=== PATIENT | male | born 1940 | race Caucasian/White ===

== ENCOUNTER 2016-11-03 14:25 | Inpatient (IN) | payer MEDICARE ==
[~2016-11-03] VITALS: Ht 180.3 cm; Wt 90.0 kg
[~2016-11-03 14:25] MED LIST: CEFDINIR300 MG PO; LIPITOR80 MG PO; MYRBETRIQ25 MG PO; ROPINIROLE HYDRO1 MG PO; TROSPIUM CHLORI20 MG PO; XARELTO20 MG PO
[2016-11-03 14:31] VITALS: BP 118/80
--- OUTSIDE RECORDS SUMMARY | 2016-11-03 14:42 | External Medical Summary Rpt ---
Author Author MAT Address Unknown Phone Purpose Continuity of Care Document - through 2016
--- OUTSIDE RECORDS SUMMARY | 2016-11-03 14:42 | External Medical Summary Rpt ---
Author Author [employer] Organization [employer] Address Unknown Phone Unavailable Purpose Continuity of Care Document - through 2016
--- OUTSIDE RECORDS SUMMARY | 2016-11-03 14:42 | External Medical Summary Rpt ---
Author Author MAT Address Unknown Phone [email or web address] Purpose Continuity of Care Document - through 2016
--- OUTSIDE RECORDS SUMMARY | 2016-11-03 14:43 | External Medical Summary Rpt ---
Author Author , MAT RIVERO Address Unknown Phone [email or web address] Immunization Name Date Rout CVX Reac Dose Comm Prov Is Faci e tion ent ider Refu lity Give sed n Tdap 07-1 Intr 115 0.5 Hist D049 No D049 , 8-20 amus mL oric 01 01 Adso 17 cula al rbed r Info rmat ion - Sour ce Unsp ecif ied
--- OUTSIDE RECORDS SUMMARY | 2016-11-03 14:43 | External Medical Summary Rpt ---
Author Author MAT Adrian, [employer] Organization [employer] Address Unknown Phone Unavailable
--- OUTSIDE RECORDS SUMMARY | 2016-11-03 14:43 | External Medical Summary Rpt ---
Author Author , MAT RIVERO Address Unknown Phone [email or web address] Immunization Name Date Rout CVX Reac Dose Comm Prov Is Faci e tion ent ider Refu lity Give sed n Tdap 07-1 Intr 115 0.5 Hist D049 No D049 , 8-20 amus mL oric 01 01 Adso 17 cula al rbed r Info rmat ion - Sour ce Unsp ecif ied
[2016-11-03] MEDS ORDERED: LASIX20 MG PO (14:45)
[2016-11-03 15:19] LABS: HEMOGLOBIN 16.6 g/dL (14.1-18.0)
[2016-11-03 15:20] LABS: LYMPH # 0.6 K/mm3 (0.7-4.5); LYMPH % 14.1 % (10-50)
--- NOTE | 2016-11-03 15:59 | Emergency Room Report ---
History of Present Illness Time Seen by 1440 Presenting Problem in Triage Pt arrived:Wheelchair Presenting Problem:PT FAMILY STATES FEVER, CHILLS, N/V, DIARRHEA Onset of symptoms date/time:10/29/16 or onset unknown for: Treatment Prior to Arrival: TOOK [employer] Provided by:SELF Sepsis Risk Assessment: Temp: 97.9 B/P: 122/84 MAP: 92 Pulse: 80 Resp: 18 Recent fever? Y Clinical Suspician of Infection? N Mental Status: 1 - Regular (Normal Baseline) Sepsis Risk:Low Sepsis Risk Have you (or family members/close friends) recently traveled outside the [place]? N If Yes, where/when: Have you had exposure to infectious disease within the past month? N TB? Other? Specify: 76 years old white male who presented with fever or chills body aches and vomiting 2 a day and intermittent diarrhea, he is getting weaker and weaker worse since last Friday. He has been around sick people in the hospital lately and his roommate's son has a same symptoms. He CONTACTED DR ARMENTA HIS primary care physician whoadvised him to come to the ED. Source patient, RN notes reviewed, family Exam Limitations no limitations ALLERGIES Coded Allergies: No Known Allergies (07/21/16) Home Medications Reported Medications Atorvastatin Calcium (Atorvastatin) 20 MG PO DAILY Rivaroxaban (Xarelto) 20 MG PO DAILY ROPINIROLE HCL (Ropinirole 1MG) 2 MG PO QHS Furosemide (Lasix) (Unknown Dose) PO DAILY History Medical History General CAD? Yes Angina: Yes [place]: No Hypertension? No Hyperlipidemia? No CHF? No DVT? No PE? No COPD? No Asthma? No Anemia? No GERD? No Gastric ulcers? No GI Bleed? No Hernia? No Thyroid Problems? No Hypothyroidism? No CVA? No Seizures? No Diabetes? No Renal Insuffiency? No End Stage Renal Disease? No UTI? No Stones? No BPH? No GB Disease: No Nephritic Syndrome? No Asplenia? No Hepatitis? No Sickle Cell Disease? No Arthritis? No Migraines? No Cataracts? Yes Glaucoma? No MRSA? No HIV? No TB? No Anxiety? No Depression? No Cancer? Yes Site: PROSTATE More? No Immunization Hx DT/Tetanus 1-4 Years Ago Flu 2015-FSN Pneumonia Received In Past Surgical Hx Previous Surgery?Y LT FOOT CRUSH INJ 1956 PROSTATE SURGERY 2010([place]) IMPLANTED URINARY CONTROL SYSTEM 06/24 CATARACT SX Family History Family Hx Diabetes No CAD Yes Hypertension Yes Hyperlipidemia No Cancer Yes TB No Social History Smoking Hx Smoker: Never Smoker Tobacco: No Alcohol Alcohol: No Review of Systems All Other Systems Reviewed and Negative Constitutional see HPI, weakness Eyes no symptoms reported ENT no symptoms reported. Respiratory no symptoms reported Cardiovascular no symptoms reported Gastrointestinal see HPI, diarrhea, nausea, vomiting Genitourinary no symptoms reported. Musculoskeletal no symptoms reported Skin no symptoms reported Psychiatric/Neurological no symptoms reported Physical Exam Vital Signs Vital Signs Date Time Temp Pulse Resp B/P Pulse O2 O2 Flow FiO2 Ox Delivery Rate 11/03 1517 80 18 122/84 94 11/03 1431 97.9 84 18 118/80 94 - WBC >12,000 or <4,000 or 10% bands? 2 or more SIRS Criteria Met? B/P:122/84 MAP:92 Creatinine >2.0? UA output<0.5ml/kg/hr for 2 hrs? Platelet count >100,000? Lactate >2.0mmol/1? INR >1.2 or PTT > than 60 sec? Evidence of Organ Dysfunction? Provider documented clinical suspician of infection? N Sepsis Criteria Count: 1 Sepsis Risk: Low Sepsis Risk General Appearance normal appearance, WD/WN Eye Exam - bilateral eye normal exam, bilateral eye PERRL, bilateral eye EOMI Ear, Nose, Throat DRY TONGUE Neck normal inspection, non-tender, supple, full range of motion Respiratory Status Yes: trachea midline, chest symmetrical, non tender chest. No: respiratory distress. Lung Sounds bilateral: normal breath sounds, lungs clear. 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 No Results/Orders Laboratory Tests 11/03/16 1505: Amylase 54, Lipase 233 11/03/16 1505: Sodium 128 L, Potassium 4.2, Chloride 95 L, Carbon Dioxide 28, BUN 24 H, Creatinine 1.5 H, Estimated Creat Clear 52, Estimated GFR (MDRD) 45, Glucose 123 H, Calcium 8.6, Total Bilirubin 1.4 H, AST 67 H, ALT 45, Alkaline Phosphatase 71, Total Protein 7.6, Albumin 3.4, Globulin 4.2 H, Albumin/ Globulin Ratio 0.8 L, WBC 4.4 L, RBC 5.50, Hgb 16.6, Hct 49.8, MCV 90.5, RDW 15.9, Plt Count 102 L, Gran % 82.5 H, Gran # 3.6, Lymphocytes % 14.1, Monocytes % 3.4, Lymphocytes # 0.6 L, Monocytes # 0.1, PUBS MCHC 33.3, MCH 30.2 Current Medication Orders Sig/Kayden Start time Last Medication Dose Route Stop Time Status Admin Sodium Chloride 1,000 ML .Q1H1M 11/03 1600 AC 11/03 IV 11/03 1700 1556 Sodium Chloride 10 ML PRN PRN 11/03 1600 AC IV 11/04 1554 Sodium Chloride 1,000 ML .STK-MED ONE 11/03 1557 DC IV Sodium Chloride 10 ML PRN PRN 11/03 1500 AC IV 11/04 1458 Orders Procedure Date/time Status Decision to admit 11/03 1605 Active ABD ACUTE(MUL VIEWS) 11/03 1554 Active LIPASE 11/03 1501 Complete AMYLASE 11/03 1501 Complete IV SALINE LOCK 11/03 1458 Active CBC WITH AUTO DIFF 11/03 1458 Complete CHEM 12 PROFILE 11/03 1458 Complete XRAY/CT/US XRAY/CT/US XRAY chest, abdomen XR interpretation by reviewed by me Comment Chest x-ray was negative. Abdomen postop changes. Multiple fluid levels without dilatation. Questionable early ileus. Departure Departure Time of Disposition 1557 Disposition Still a Patient Clinical Impression Primary Impression: Dehydration Secondary Impressions: Elevated bilirubin, Ileus, Renal insufficiency, Vomiting and diarrhea Condition STABLE Referrals Manuel LO,Migue (Family) Additional Instructions The patient was started on IV fluids obtained labs that showed renal insufficiency after IV fluids he has not produced urine seems to be dehydrated. I contacted Dr. ARMENTA for admission. DR ARMENTA AGREED TOADMIT FOR IVF AND DEHYDRATION. DR. ALVARADO Discharge Counseling Counseled pt/family regarding diagnosis, medications/RX, home care, follow up needs ED Critical Care Critical Care No If Critical Care minutes are documented, the time involved in the performance of seperately reportable procedures was not counted toward critical care time documented. I directly delivered medical care to this critically ill and/or injured patient. Timely evaluation and treatment was necessary to address the significant organ system(s) dysfunction present in this patient. at 2624
--- OUTSIDE RECORDS SUMMARY | 2016-11-03 16:12 | External Medical Summary Rpt ---
Author Author MAT Address Unknown Phone Purpose Continuity of Care Document - 11-03-2016 through 2016
--- OUTSIDE RECORDS SUMMARY | 2016-11-03 16:12 | External Medical Summary Rpt ---
Author Author MAT Address Unknown Phone [email or web address] Purpose Continuity of Care Document - 11-03-2016 through 2016
--- OUTSIDE RECORDS SUMMARY | 2016-11-03 16:13 | External Medical Summary Rpt ---
Demographics Preferred Language Chinese Marital Status Unknown Shinto Affiliation Unknown Race Unknown Ethnic Group Unknown Author Author , MAT RIVERO Address Unknown Phone Immunization Unable to retrieve immunization data due to connection failure with Immunization Registry. Please try again later.
--- OUTSIDE RECORDS SUMMARY | 2016-11-03 16:13 | External Medical Summary Rpt ---
Demographics Preferred Language Telugu Marital Status Unknown Yarsani Affiliation Unknown Race Unknown Ethnic Group Unknown Author Author , MAT RIVERO Address Unknown Phone Immunization Unable to retrieve immunization data due to connection failure with Immunization Registry. Please try again later.
--- OUTSIDE RECORDS SUMMARY | 2016-11-03 16:14 | External Medical Summary Rpt ---
Author Author MAT ec[employer]ee, MAT [employer] Organization [employer] Address Unknown Phone Unavailable Results Comprehensive metabolic 2000 panel in Serum or Plasma Observa Value Referen Units Interpr Notes Date tion ce etation Range Albumin/G 1.1 - 1.8 No Low No Nov 03 lobulin informati informati 2016 3:05 [Mass on in on in PM ratio] in source source Serum or data data Plasma Albumin 3.4 - 5.0 gm/dL Normal No Nov 03 [Mass/vol informati 2016 3:05 ume] in on in PM Serum or source Plasma data Alkaline 46 - 116 U/L Normal No Nov 03 phosphata informati 2016 3:05 se on in PM [Enzymati source c data activity/ volume] in Serum or Plasma Bilirubin 0.2 - 1.0 mg/dL High No Nov 03 .total informati 2016 3:05 [Mass/vol on in PM ume] in source Serum or data Plasma Urea 7 - 18 mg/dL High No Nov 03 nitrogen informati 2016 3:05 [Mass/vol on in PM ume] in source Serum or data Plasma Calcium 8.5 - mg/dL Normal No Nov 03 [Mass/vol 10.1 informati 2016 3:05 ume] in on in PM Serum or source Plasma data Chloride 98 - 107 mmoL/L Low No Nov 03 [Moles/vo informati 2016 3:05 lume] in on in PM Serum or source Plasma data Carbon 21.0 - mmoL/L Normal No Nov 03 dioxide, 32.0 informati 2016 3:05 total on in PM [Moles/vo source lume] in data Serum or Plasma Creatinin 0.70 - mg/dL High No Nov 03 e 1.30 informati 2017 3:05 [Mass/vol on in PM ume] in source Serum or data Plasma Creatinin 50 - 200 ML/MIN Normal No Nov 03 e renal informati 2017 3:05 clearance on in PM source predicted data by Cockcroft -Gault formula Estimated >60 ML/MIN No REFERENCE Nov 03 informati RANGE: 2017 3:05 glomerula on in >60 PM r source ML/MIN/1. filtratio data 73 SQUARE n rate METERSIf (GF this patient is -A merican, then multiply theresult by 1.210. Globulin 1.3 - 3.2 gm/dL High No Nov 03 [Mass/vol informati 2016 3:05 ume] in on in PM Serum source data Glucose 74 - 106 mg/dL High No Nov 03 [Mass/vol informati 2016 3:05 ume] in on in PM Serum or source Plasma data Potassium 3.5 - 5.1 mmoL/L Normal MAY BE Nov 03 ELEVATED 2016 3:05 [Moles/vo DUE TO PM lume] in SLIGHT Serum or HEMOLYSIS Plasma Sodium 136 - 145 mmoL/L Low No Nov 03 [Moles/vo informati 2016 3:05 lume] in on in PM Serum or source Plasma data Aspartate 15 - 37 U/L High MAY BE Nov 03 ELEVATED 2016 3:05 aminotran DUE TO PM sferase SLIGHT [Enzymati HEMOLYSIS c activity/ volume] in Serum or Plasma Alanine 12 - 78 U/L Normal No Nov 03 aminotran informati 2016 3:05 sferase on in PM [Enzymati source c data activity/ volume] in Serum or Plasma Protein 6.4 - 8.2 gm/dL Normal No Nov 03 [Mass/vol informati 2016 3:05 ume] in on in PM Serum or source Plasma data Comprehensive metabolic 2000 panel in Serum or Plasma Observa Value Referen Units Interpr Notes Date tion ce etation Range Albumin/G 1.1 - 1.8 No Low No Nov 03 lobulin informati informati 2016 3:05 [Mass on in on in PM ratio] in source source Serum or data data Plasma Albumin 3.4 - 5.0 gm/dL Normal No Nov 03 [Mass/vol informati 2016 3:05 ume] in on in PM Serum or source Plasma data Alkaline 46 - 116 U/L Normal No Nov 03 phosphata informati 2016 3:05 se on in PM [Enzymati source c data activity/ volume] in Serum or Plasma Bilirubin 0.2 - 1.0 mg/dL High No Nov 03 .total informati 2017 3:05 [Mass/vol on in PM ume] in source Serum or data Plasma Urea 7 - 18 mg/dL High No Nov 03 nitrogen informati 2017 3:05 [Mass/vol on in PM ume] in source Serum or data Plasma Calcium 8.5 - mg/dL Normal No Nov 03 [Mass/vol 10.1 informati 2016 3:05 ume] in on in PM Serum or source Plasma data Chloride 98 - 107 mmoL/L Low No Nov 03 [Moles/vo informati 2016 3:05 lume] in on in PM Serum or source Plasma data Carbon 21.0 - mmoL/L Normal No Nov 03 dioxide, 32.0 informati 2016 3:05 total on in PM [Moles/vo source lume] in data Serum or Plasma Creatinin 0.70 - mg/dL High No Nov 03 e 1.30 informati 2016 3:05 [Mass/vol on in PM ume] in source Serum or data Plasma Creatinin 50 - 200 ML/MIN Normal No Nov 03 e renal informati 2016 3:05 clearance on in PM source predicted data by Cockcroft -Gault formula Estimated >60 ML/MIN No REFERENCE Nov 03 informati RANGE: 2017 3:05 glomerula on in >60 PM r source ML/MIN/1. filtratio data 73 SQUARE n rate METERSIf (GF this patient is -A merican, then multiply theresult by 1.210. Globulin 1.3 - 3.2 gm/dL High No Nov 03 [Mass/vol informati 2016 3:05 ume] in on in PM Serum source data Glucose 74 - 106 mg/dL High No Nov 03 [Mass/vol informati 2016 3:05 ume] in on in PM Serum or source Plasma data Potassium 3.5 - 5.1 mmoL/L Normal MAY BE Nov 03 ELEVATED 2016 3:05 [Moles/vo DUE TO PM lume] in SLIGHT Serum or HEMOLYSIS Plasma Sodium 136 - 145 mmoL/L Low No Nov 03 [Moles/vo informati 2016 3:05 lume] in on in PM Serum or source Plasma data Aspartate 15 - 37 U/L High AUGUST BE Nov 03 ELEVATED 2016 3:05 aminotran DUE TO PM sferase SLIGHT [Enzymati HEMOLYSIS c activity/ volume] in Serum or Plasma Alanine 12 - 78 U/L Normal No Nov 03 aminotran informati 2016 3:05 sferase on in PM [Enzymati source c data activity/ volume] in Serum or Plasma Protein 6.4 - 8.2 gm/dL Normal No Nov 03 [Mass/vol informati 2016 3:05 ume] in on in PM Serum or source Plasma data Amylase [Enzymatic activity/volume] in Serum or Plasma Observa Value Referen Units Interpr Notes Date tion ce etation Range Amylase 25 - 115 U/L Normal No Nov 03 [Enzymati informati 2016 3:05 c on in PM activity/ source volume] data in Serum or Plasma Lipase [Enzymatic activity/volume] in Serum or Plasma Observa Value Referen Units Interpr Notes Date tion ce etation Range Lipase 73 - 393 U/L Normal No Nov 03 [Enzymati informati 2016 3:05 c on in PM activity/ source volume] data in Serum or Plasma Amylase [Enzymatic activity/volume] in Serum or Plasma Observa Value Referen Units Interpr Notes ti ce etation Range Amylase 25 - 115 U/L Normal No Nov 03 [Enzymati informati 2016 3:05 c on in PM activity/ source volume] data in Serum or Plasma Lipase [Enzymatic activity/volume] in Serum or Plasma Observa Value Referen Units Interpr Notes ti ce etation Range Lipase 73 - 393 U/L Normal No Nov 03 [Enzymati informati 2016 3:05 c on in PM activity/ source volume] data in Serum or Plasma Amylase [Enzymatic activity/volume] in Serum or Plasma Observa Value Referen Units Interpr Notes ti ce etation Range Amylase 25 - 115 U/L Normal No Nov 03 [Enzymati informati 2016 3:05 c on in PM activity/ source volume] data in Serum or Plasma Lipase [Enzymatic activity/volume] in Serum or Plasma Observa Value Referen Units Interpr Notes ce etation Range Lipase 73 - 393 U/L Normal No Nov 03 [Enzymati informati 2016 3:05 c on in PM activity/ source volume] data in Serum or Plasma CBC W Auto Differential panel in Blood Observa Value Referen Units Interpr Notes Date ti ce etation Range Granulocy 1.3 - 8.0 K/mm3 Normal No Nov 03 win informati 2016 3:05 [#/volume on in PM ] in source Blood by data Automated count Granulocy 37.0 - % High No Nov 03 win/100 80.0 informati 2016 3:05 leukocyte on in PM s in source Blood by data Automated count Hematocri 42.0 - % Normal No Chance 23 t [Volume 52.0 informati 2017 3:05 on in PM Fraction] source of Blood data Hemoglobi 14.1 - g/dL Normal No Nov 03 n 18.0 informati 2016 3:05 [Mass/vol on in PM ume] in source Blood data Lymphocyt 0.7 - 4.5 K/mm3 Low No Nov 03 es informati 2016 3:05 [#/volume on in PM ] in source Unspecifi data ed specimen by Automated count Lymphocyt 10 - 50 % Normal No Nov 03 es informati 2016 3:05 [#/volume on in PM ] in source Unspecifi data ed specimen by Automated count Erythrocy 27 - 31.2 pg Normal No Nov 03 te mean informati 2016 3:05 corpuscul on in PM ar source hemoglobi data n [Entitic mass] Erythrocy 31.8 - g/dl Normal No Nov 03 te mean 35.4 informati 2016 3:05 corpuscul on in PM ar source hemoglobi data n concentra tion [Mass/vol ume] by Automated count Erythrocy 82.2 - fL Normal No Nov 03 te mean 97.8 informati 2016 3:05 corpuscul on in PM ar volume source [Entitic data volume] by Automated count Monocytes 0.1 - 1.0 K/mm3 Normal No Nov 03 informati 2017 3:05 [#/volume on in PM ] in source Blood by data Automated count Monocytes 1.7 - 9.3 % Normal No Nov 03 /100 informati 2017 3:05 leukocyte on in PM s in source Blood by data Automated count Platelets 142 - 424 K/mm3 Low No Nov 03 informati 2017 3:05 [#/volume on in PM ] in source Blood data Erythrocy 4.6 - 6.2 M/mm3 Normal No Nov 03 win informati 2017 3:05 [#/volume on in PM ] in source Amniotic data fluid Erythrocy 11.5 - % Normal No Nov 03 te 17.5 informati 2017 3:05 distribut on in PM ion width source [Entitic data volume] by Automated count Leukocyte 4.8 - K/mm3 Low No Nov 03 s 10.8 informati 2016 3:05 [#/volume on in PM ] in source Blood data
--- OUTSIDE RECORDS SUMMARY | 2016-11-03 16:14 | External Medical Summary Rpt ---
Author Author MAT [employer], [employer] Organization [employer] Address Unknown Phone Unavailable [...]
[2016-11-03 17:23] VITALS: BP 124/68
[2016-11-03 17:40] VITALS: BP 144/54
[2016-11-03 19:29] VITALS: BP 136/70
[2016-11-04 03:37] VITALS: BP 134/69
--- NOTE | 2016-11-04 07:22 | PHARMACY CLINIC NOTE ---
Patient Demographics Patient Demographics Admission date: 11/03/16 Date: 11/04/16 Time: 07 Allergies Coded Allergies: No Known Allergies (07/21/16) HEIGHT- FT: 5 IN: 11.00 K.665 VTE General Information Labs: Laboratory Tests 11/03 1505 Hematology Hgb (14.1 - 18.0 g/dL) 16.6 Hct (42.0 - 52.0 %) 49.8 Plt Count (142 - 424 K/mm3) 102 L Disclaimer The following section includes nursing documentation that has been pulled in for pharmacy review. Patient's VTE score: 2 Patient's VTE Risk: VERY LOW RISK Clinical trial participant? No VTE prophylaxis [facility] 0371 VTE prophylaxis ordered? Yes Type of prophylaxis/treatment: EMILY at 0721
--- NOTE | 2016-11-04 07:22 | PHARMACY CLINIC NOTE ---
Patient Demographics Patient Demographics Admission date: 11/03/16 Date: 11/04/16 Time: 07 Allergies Coded Allergies: No Known Allergies (07/21/16) HEIGHT- FT: 5 IN: 11.00 K.665 VTE General Information Labs: Laboratory Tests 11/03 1505 Hematology Hgb (14.1 - 18.0 g/dL) 16.6 Hct (42.0 - 52.0 %) 49.8 Plt Count (142 - 424 K/mm3) 102 L Disclaimer The following section includes nursing documentation that has been pulled in for pharmacy review. Patient's VTE score: 2 Patient's VTE Risk: VERY LOW RISK Clinical trial participant? No VTE prophylaxis [facility] 0371 VTE prophylaxis ordered? Yes Type of prophylaxis/treatment: EMILY at 0721
[2016-11-04 08:00] VITALS: BP 120/73
--- NOTE | 2016-11-04 08:06 | RADIOLOGY REPORT PS360 ---
ABD ACUTE(MUL VIEWS) HISTORY: Nausea, vomiting, and diarrhea nvd ORDERING PHYSICIAN: Migue Jackson MD PATIENT AGE: 76 years COMPARISON: None FINDINGS: A frontal view of the chest shows patchy density left lung base cyst atelectasis or infiltrate/pneumonia. Upright and supine views of the abdomen show scattered air-fluid levels within both large and small bowel. The bowel loops are nondistended. These findings may be due to ileus/enteritis. Follow-up suggested as partial small bowel obstruction could have a similar appearance. No free air. Surgical clips are present in the pelvic region. IMPRESSION: 1. Scattered air-fluid levels within nondistended large and small bowel suggestive of ileus. Cannot exclude partial small bowel obstruction therefore, follow-up is recommended. 2. Left lower lobe infiltrate
[2016-11-04] MEDS ORDERED: VITAMIN D5000 I2 PO (08:36)
[2016-11-04] MEDS ORDERED: TYLENOL325 MG PO (08:37)
[2016-11-04] MEDS ORDERED: VITAMIN B122500 MC1 PO (08:38)
[2016-11-04] MEDS ORDERED: CARVEDILOL3.125 M1 PO (08:39)
--- NOTE | 2016-11-04 08:53 | HISTORY AND PHYSICAL REPORT ---
History and Physical (FCA) Date of admission: 11/03/16 Chief complaint: "out of it" weakness; diarrhea History: History of Present Illness: Mr Spencer is a 76 year old male with a history of CAD and At Fib who presented to [facility] ER feeling so weak that he could hardly walk. The weakness has been going on for about 1 week. He even had to stay in bed for 2 days; he developed a diarrhea with stools x4-5 for about 3 days. He has had some nausea but denies vomiting and abdominal pain. He does state that he has had chills with a fever up to 102. He alkso has had a cough for about 2 months with PND and RN. He was evaluated in the ER and felt to be hydrated and was admitted for IVF and monitoring. This AM he denies nausea and is eating a clear liquid diet. He has had 1 diarrhea stool during the night and states that this has improved. He denies CP and SOB. CXR does show a LLL pneumonia. Past Medical History: Medical History: CAD? Yes Angina: Yes MA: No Hypertension? No Hyperlipidemia? Yes CHF? No DVT? No PE? No COPD? No Asthma? No Anemia? No GERD? No Gastric ulcers? No GI Bleed? No Hernia? No Thyroid Problems? No Hypothyroidism? No CVA? No Seizures? No Diabetes? No Renal Insuffiency? No UTI? No Stones? No BPH? Yes GB Disease: No Nephritic Syndrome? No Asplenia? No Hepatitis? No Sickle Cell Disease? No Arthritis? No Migraines? No Cataracts? Yes Glaucoma? No MRSA? No HIV? No TB? No Anxiety? No Depression? No Cancer? Yes Site: PROSTATE More? No Additional hx: atrial fib Surgical history: Previous Surgery?Y LT FOOT CRUSH INJ 1956 PROSTATE SURGERY 2010([place]) IMPLANTED URINARY CONTROL SYSTEM 06/24 CATARACT SX Cholecystectomy 2013 Medications: Reported Medications Furosemide (Lasix) 20 MG PO DAILY CHOLECALCIFEROL (VITAMIN D3) (Vitamin D3) 5,000 IU PO Acetaminophen (Tylenol) 650 MG PO Q8 Cyanocobalamin (Vitamin B-12) (Vitamin B12) 500 MCG PO DAILY Carvedilol 3.125 MG PO BID Atorvastatin Calcium (Atorvastatin) 20 MG PO DAILY Rivaroxaban (Xarelto) 20 MG PO DAILY ROPINIROLE HCL (Ropinirole 1MG) 2 MG PO QHS Allergies: Coded Allergies: No Known Allergies (07/21/16) Family History: Family history: Postive for: CAD, cancer. Negative for: DM. Social History: Smoking Hx Tobacco: No Smoker: Never Smoker Type: N/A Packs/day: N/A Are you exposed to second hand No Alcohol: Alcohol: No Hx of Drug Use: Drug Use? No Patien't marital status is: Review of Systems: Constitutional Positive for: chills, weak. Cardiovascular Positive for: SELBY, palpitations. No: chest pain, edema. Respiratory Positive for: dyspnea on exertion, non-productive. No: productive cough (sputum ). GI Positive for: diarrhea, nausea. No: abdominal pain, constipation, hematemeis, hematochezia, melena, vomitting. (male) No: frequency. Neurological Positive for: dizziness, headache, light headed, weakness. No: confusion, seizure, syncope. Musculoskeletal No: extremity pain, joint pain. Physical Exam: Vital signs: 1ST Vital Signs Result Date Time Pulse Ox 94 11/03 1431 B/P 118/80 11/03 1431 Temp 97.9 11/03 1431 Pulse 84 11/03 1431 Resp 18 11/03 1431 O2 Delivery ROOM AIR 11/03 1723 Exam: General appearance: alert, active, no acute distress, sitting on bedside eating his breakfast ( clear liquids) Eyes: anicteric ENT: dry tongue; teeth are out Neck: no carotid bruit, full range of motion, supple, lymphadenopathy (absent ), thyroid (normal) Cardiovascular: normal peripheral pulses, no peripheral edema, irregularly irregular Respiratory: aerating well, clear to auscultation (bilat anterior and posterior) ABD: soft, no tenderness, no guarding, no organomegaly, bowel sounds present Extremities: no peripheral edema, no calf tenderness Neuro: alert, oriented Lab data: Labs: Laboratory Tests 11/03/16 1505: Amylase 54, Lipase 233 11/03/16 1505: Sodium 128 L, Potassium 4.2, Chloride 95 L, Carbon Dioxide 28, BUN 24 H, Creatinine 1.5 H, Estimated Creat Clear 52, Estimated GFR (MDRD) 45, Glucose 123 H, Calcium 8.6, Total Bilirubin 1.4 H, AST 67 H, ALT 45, Alkaline Phosphatase 71, Total Protein 7.6, Albumin 3.4, Globulin 4.2 H, Albumin/ Globulin Ratio 0.8 L, WBC 4.4 L, RBC 5.50, Hgb 16.6, Hct 49.8, MCV 90.5, RDW 15.9, Plt Count 102 L, Gran % 82.5 H, Gran # 3.6, Lymphocytes % 14.1, Monocytes % 3.4, Lymphocytes # 0.6 L, Monocytes # 0.1, PUBS MCHC 33.3, MCH 30.2 Radiology results: Results: CXR 11/03/16 IMPRESSION: 1. Scattered air-fluid levels within nondistended large and small bowel suggestive of ileus. Cannot exclude partial small bowel obstruction therefore, follow-up is recommended. 2. Left lower lobe infiltrate Diagnosis(es): 1. Dehydration 2. Renal insufficiency 3. Diarrhea 4. Ileus 5. A-fib Plan: continue with IVF; repeat labs; restart home meds of carvedilol and xarelto; monitor I&O; CXR (Erum Raza APRN) Diagnosis(es): 1. Dehydration 2. Renal insufficiency 3. Diarrhea 4. Ileus 5. A-fib Plan: Patient seen and agree with above note. (Migue Jackson MD) at 0853 at 0911
[2016-11-04 09:07] VITALS: BP 120/73
[2016-11-04] MEDS ORDERED: MULTI-VITAMINS1 TAB PO (10:09)
--- NOTE | 2016-11-04 10:31 | RADIOLOGY REPORT PS360 ---
CHEST(2 VIEWS-NOT PORTABLE) HISTORY: cough; fever ORDERING PHYSICIAN: Migue Jackson MD PATIENT AGE: 76 years COMPARISON: 07/21/2016, 11/03/2016 FINDINGS: The cardiomediastinal silhouette and pulmonary vascularity are within normal limits. There remains consolidation in the retrocardiac region on the left consistent with left lower lobe pneumonia. The remaining lungs are clear. No acute bony anomalies. IMPRESSION: No change left lower lobe pneumonia
[2016-11-04 16:07] VITALS: BP 107/46
--- NOTE | 2016-11-04 17:15 | ACUTE CARE PROGRESS NOTE (QUA) ---
Progress Notes Subjective Date 11/04/16 Time 1705 Note Patient describes left anterior chest discomfort this PM as a fullness which lasted about 10 minutes. He has periodically been SOB and coughing. He was visiting with his cousin at the time. He is comfortable at present. No pain with deep breath or to palpation Objective Findings Laboratory Tests 11/04/16 1120: Mycoplasma pneumon IgM NON-REACTIVE 11/04/16 0900: Sodium 135 L, Potassium 3.4 L, Chloride 103, Carbon Dioxide 25, BUN 24 H, Creatinine 1.1, Estimated Creat Clear 68, Estimated GFR (MDRD) 65, Glucose 123 H, Calcium 7.7 L, Total Bilirubin 1.0, AST 69 H, ALT 50, Alkaline Phosphatase 55, Total Protein 5.8 L, Albumin 2.7 L, Globulin 3.1, Albumin/Globulin Ratio 0.9 L Microbiology 11/04 1120 BLOOD: Anaerobic Blood Culture - RECD 11/04 1120 BLOOD: Aerobic Blood Culture - RECD 11/04 1120 BLOOD: Anaerobic Blood Culture - RECD 11/04 1120 BLOOD: Aerobic Blood Culture - RECD Last VS-Temp:98.1 B/P:107/46 Pulse:84 Resp:20 SaO2:93 ROOM AIR Last weight lbs:191 oz:1 K.665 Method:Bed Scales CXR 11/04/16 IMPRESSION: No change left lower lobe pneumonia Exam General appearance: alert, no acute distress Cardiovascular: regular rate & rhythm Respiratory: few basilar crackles and rare wheeze Neuro: alert, oriented Assessment/Plan Problem List 1. Dehydration 2. Renal insufficiency 3. Diarrhea 4. Ileus 5. A-fib 6. Pneumonia 7. Chest pain 8. Hypokalemia Patient condition Stable Plan: ABX have been started for pneumonia; will do EKG and cardiac enzymes and place on telemetry. cardiology consult IVF decreased to 75/hour and given dose of KCL for hypokalemia This inpt stay is expected to cross 2 MNs from start of care Yes at 1714
[2016-11-04 19:45] VITALS: BP 102/67
[2016-11-04 23:47] VITALS: BP 129/63
[2016-11-05] VITALS (8 sets, daily range): BP systolic 107–131; BP diastolic 52–78
[2016-11-05 06:39] LABS: HEMOGLOBIN 14.2 g/dL (14.1-18.0); LYMPH # 0.5 K/mm3 (0.7-4.5); LYMPH % 12.5 % (10-50)
--- NOTE | 2016-11-05 08:15 | ACUTE CARE PROGRESS NOTE (QUA) ---
Progress Notes Subjective Date 11/05/16 Time 0805 Note Patient denies any further CP; SOB with coughing; had 1 loose stool during the night; denies nausea and vomiting; does still prefer liquids. voiding QS; has been OOB Labs have improved Objective Findings Laboratory Tests 11/05/16 0605: Sodium 136, Potassium 4.4, Chloride 103, Carbon Dioxide 27, BUN 17, Creatinine 1.0, Estimated Creat Clear 75, Estimated GFR (MDRD) 72, Glucose 93, Calcium 7.7 L, Total Bilirubin 0.9, AST 78 H, ALT 50, Alkaline Phosphatase 50, Total Protein 5.7 L, Albumin 2.7 L, Globulin 3.0, Albumin/Globulin Ratio 0.9 L, WBC 3.9 L, RBC 4.68, Hgb 14.2, Hct 42.7, MCV 91.4, RDW 14.0, Plt Count 65 L, MPV 11.3 H, Gran % 81.7 H, Gran # 3.2, Lymphocytes % 12.5, Monocytes % 5.5, Eosinophils % 0.1, Basophils % 0.1, Lymphocytes # 0.5 L, Monocytes # 0.2, Eosinophils # 0.0, Basophils # 0.0, PUBS MCHC 33.3, MCH 30.5 11/04/16 1710: Creatine Kinase 818 H, CK-MB (CK-2) Rel Index 0.6, CK and CKMB Interp 5.0 H, Troponin I 0.12 H 11/04/16 1120: Mycoplasma pneumon IgM NON-REACTIVE 11/04/16 0900: Sodium 135 L, Potassium 3.4 L, Chloride 103, Carbon Dioxide 25, BUN 24 H, Creatinine 1.1, Estimated Creat Clear 68, Estimated GFR (MDRD) 65, Glucose 123 H, Calcium 7.7 L, Total Bilirubin 1.0, AST 69 H, ALT 50, Alkaline Phosphatase 55, Total Protein 5.8 L, Albumin 2.7 L, Globulin 3.1, Albumin/Globulin Ratio 0.9 L Microbiology 11/04 1120 BLOOD: Anaerobic Blood Culture - RECD 11/05 1119 BLOOD: Aerobic Blood Culture - RECD 11/05 1119 BLOOD: Anaerobic Blood Culture - RECD 11/05 1119 BLOOD: Aerobic Blood Culture - RECD Vital Signs Date Time Temp Pulse Resp B/P Pulse O2 O2 Flow FiO2 Ox Delivery Rate 11/05 0755 98.2 99 20 115/67 94 ROOM AIR 11/05 0618 94 ROOM AIR 11/05 0318 98.9 84 18 107/54 92 ROOM AIR 11/04 2347 98.9 80 20 129/63 92 ROOM AIR 11/04 1945 98.0 77 20 102/67 91 ROOM AIR 11/04 1607 98.1 84 20 107/46 93 ROOM AIR 11/04 1350 16 11/04 1147 93 ROOM AIR 11/04 0907 98.0 69 16 120/73 92 Current Medications Albuterol/Ipratropium 0 .STK-MED ONE INH (DC) Potassium Chloride 40 MEQ ONCE ONE PO (DC) Albuterol/Ipratropium 0 .STK-MED ONE INH (DC) Tramadol HCl 0 .STK-MED ONE .ROUTE (DC) Azithromycin 500 MG Q24H IV Sodium Chloride 250 ML Albuterol/Ipratropium 0 .STK-MED ONE INH (DC) Albuterol/Ipratropium 3 ML Q6HP PRN INH Ceftriaxone Sodium 1 GM Q24H IV Sodium Chloride 50 ML Guaifenesin/Dextromethorphan 10 ML Q4HP PRN PO Phenol SPRAY NEEDED FOR SORE THROAT PRN PRN PO Rivaroxaban 0 .STK-MED ONE PO (DC) Carvedilol 0 .STK-MED ONE .ROUTE (DC) Sodium Chloride 1,000 ML .STK-MED ONE IV (DC) Carvedilol 3.125 MG BID PO Rivaroxaban 20 MG DAILY PO Sodium Chloride 10 ML PRN PRN IV Acetaminophen 650 MG Q4HP PRN PO Diphenhydramine HCl 25 MG QHSP PRN PO Tramadol HCl 50 MG Q4HP PRN PO Loperamide HCl 2 MG PRN PRN PO Nicotine 21 MG DAILYP PRN TD Ondansetron HCl 4 MG Q8HP PRN IV Sodium Chloride 1,000 ML .[id number] IV Sodium Chloride 10 ML PRN PRN IV (DC) Sodium Chloride 10 ML PRN PRN IV (DC) 11/04 1500 / 2300 11/05 0700 Intake Total 480 2238 Output Total Balance 480 2238 Intake, IV 1398 Intake, Oral 480 840 Output, Stool Patient 191 lb Weight Last VS-Temp:98.2 B/P:115/67 Pulse:99 Resp:20 SaO2:94 ROOM AIR Last weight lbs:191 oz:1 K.665 Method:Bed Scales Exam General appearance: alert, no acute distress Cardiovascular: irregularly irregular, monitor showing At Fib Respiratory: left basilar crackles heard today ABD: non-distended, soft, no tenderness, bowel sounds present Extremities: no peripheral edema, no calf tenderness Neuro: alert, oriented, speech clear Assessment/Plan Problem List 1. Dehydration 2. Renal insufficiency 3. Diarrhea 4. Ileus 5. A-fib 6. Pneumonia 7. Chest pain 8. Hypokalemia Patient condition Improving Plan: continue current care, cardiology consult This inpt stay is expected to cross 2 MNs from start of care Yes at 0815
--- NOTE | 2016-11-05 13:51 | CONSULT NOTE ---
Standard Demographics Patient Demo Date of Consultation: 11/05/16 Referring Provider: Migue Jackson MD Reason for Consultation: weakness, diarrhea, and elevated troponin PRIMARY DIAGNOSIS: DEHYDRATION Problem list Problem list: LLL pneumonia Dehydration Elevated troponin diarrhea CAD History of present illness: History of present illness: Mr. hollins is a 76-year-old male who was admitted to the hospital with weakness and diarrhea. The patient states that he had not been feeling well for approximately 3 months. He states that his weakness began about a week ago. He states that he has been so weak that he could hardly walk. He reports that he actually stayed in bed for 2 days straight because of his weakness. He states that he has also developed diarrhea and has been having diarrhea stools frequently throughout the days and it started about 3 days prior to his admission. The patient reports some nausea but denies any vomiting. She reports being short of breath and has an associated cough as well as fevers and chills. The patient also had PND as well. The patient came into the emergency department and was found to be dehydrated and was started on IV fluids. His chest x-ray also revealed a LEFT lower lobe pneumonia for which he is being treated. He did have an elevated troponin as well. The patient reports having an episode of chest pain on Friday. He reports that this was a pressure sensation that only lasted for about 10 minutes and then resolved. He reports that this was following a coughing spell. The patient reports that with his cough he sometimes does get chest discomfort but has had no real pain since that episode on Friday. Past Medical History: General: Hypertension No CVA No Seizures No TB No COPD No Asthma No Diabetes No Angina Yes NH No Hyperlipidemia Yes Urinary No Cancer Yes Rheumatic H.D. No Ulcers No MRSA No GB Disease No Other ARTHRITIS,HAS IMPLANTED U Additional hx atrial fib, CAD Past Surgical HX: Previous Surgery?Y LT FOOT CRUSH INJ 1956 PROSTATE SURGERY 2010([place]) IMPLANTED URINARY CONTROL SYSTEM 06/24 CATARACT SX Allergies Coded Allergies: No Known Allergies (07/21/16) Home medications: Reported Medications Rivaroxaban (Xarelto) 20 MG PO QHS CHOLECALCIFEROL (VITAMIN D3) (Vitamin D3) 5,000 IU PO DAILY MULTIVITAMIN (Multi-Vitamins) 1 TAB PO DAILY Furosemide (Lasix) 20 MG PO DAILY Acetaminophen (Tylenol) 650 MG PO Q8 Cyanocobalamin (Vitamin B-12) (Vitamin B12) 500 MCG PO DAILY Carvedilol 3.125 MG PO BID Atorvastatin Calcium (Atorvastatin) 20 MG PO DAILY ROPINIROLE HCL (Ropinirole 1MG) 2 MG PO QHS Current Medications: Current Medications Albuterol/Ipratropium 0 .STK-MED ONE INH (DC) Albuterol/Ipratropium 0 .STK-MED ONE INH (DC) Potassium Chloride 40 MEQ ONCE ONE PO (DC) Albuterol/Ipratropium 0 .STK-MED ONE INH (DC) Tramadol HCl 0 .STK-MED ONE .ROUTE (DC) Azithromycin 500 MG Q24H IV Sodium Chloride 250 ML Albuterol/Ipratropium 3 ML Q6HP PRN INH Ceftriaxone Sodium 1 GM Q24H IV Sodium Chloride 50 ML Guaifenesin/Dextromethorphan 10 ML Q4HP PRN PO Phenol SPRAY NEEDED FOR SORE THROAT PRN PRN PO Carvedilol 3.125 MG BID PO Rivaroxaban 20 MG DAILY PO Sodium Chloride 10 ML PRN PRN IV Acetaminophen 650 MG Q4HP PRN PO Diphenhydramine HCl 25 MG QHSP PRN PO Tramadol HCl 50 MG Q4HP PRN PO Loperamide HCl 2 MG PRN PRN PO Nicotine 21 MG DAILYP PRN TD Ondansetron HCl 4 MG Q8HP PRN IV Sodium Chloride 1,000 ML .[id number] IV Sodium Chloride 10 ML PRN PRN IV (DC) Sodium Chloride 10 ML PRN PRN IV (DC) Immunization HX DT/Tetanus 1-4 Years Flu [id number] Pneumonia RECEIVED IN PAST TB Test in last year No Family history Family HX Diabetes No CAD Yes Hypertension Yes Hyperlipidemia No Cancer Yes TB No Social Hx: Smoking HX Tobacco No Type N/A Packs/day N/A Are you/the child exposed to second-hand smoke: No Alcohol Alcohol: No Hx of Drug Use Drug Use? No Review of systems: Constitutional chills, fever, malaise, weakness. No: diaphoresis, other. Eyes No: blindness, blurred vision, drainage, decreased acuity, foreign body sensation, inflammation, pain, photophobia, previous injury, shadows, tunnel vision, vision change, contact lenses, glasses, other. Ears, Nose, Mouth, Throat No ear pain, No ear discharge, No nose pain, No drooling/excessive saliva, No nose discharge, No nose congestion, No epistaxis, No mouth pain, No mouth swelling, No tongue swelling, No dental caries, No loose teeth, No missing teeth , No throat pain, No throat swelling, No other Respiratory see HPI, cough, orthopnea, shortness of breath, SOB with excertion, SOB at rest. No: stridor, wheezing, other. Cardiovascular chest pain, No edema, No palpitations, No syncope, No other Gastrointestinal/Abdominal No abdomen distended, No abdominal pain, No blood streaked bowels, No constipated, diarrhea, No difficulty swallowing, nausea, No poor appetite, No poor fluid intake, No rectal bleeding, No vomiting, No other Genitourinary No: discharge, abnormal vaginal bleeding, normal menstrual period, vaginal discharge, dysuria, frequency, hesitancy, hematuria, dyspareunia, pain, penis pain, pelvic pain, scrotal/testicular pain, hx stds, genital lesions, other, , labia tenderness, penis tenderness, scrotal tenderness. Musculoskeletal No: back pain, gout, joint pain, joint swelling, muscle pain, muscle stiffness, neck pain, other. Skin No: change in color, change in hair/nails, dryness, lesions, lumps, rash, other. Neurological No: headache, numbness, tingling, tremors, weakness, parasthesia, seizure disorder. Psychiatric No: anxious, depressed, other, withdrawn. Exam: Admission Vital Signs: 1ST Vital Signs Result Date Time Pulse Ox 94 11/03 1431 B/P 118/80 11/03 1431 Temp 97.9 11/03 1431 Pulse 84 11/03 1431 Resp 18 11/03 1431 O2 Delivery ROOM AIR 11/03 1723 Last Vital Signs: Vital Signs Result Date Time Pulse Ox 94 11/05 1214 B/P 115/67 11/05 1214 Temp 98.2 11/05 1214 Pulse 99 11/05 1214 Resp 20 11/05 1214 O2 Delivery ROOM AIR 11/05 0755 Exam General appearance: normal appearance, alert, awake, face symmetric, no acute distress, well-developed, well-nourished Eyes: normal exam, anicteric, conjunctiva clear, pupils reactive to light, PERRLA, sclera clear ENT: normal exam, mucous membranes moist, nose normal, pharynx normal, dry mucous membranes Neck: normal inspection, non-tender, no carotid bruit, no JVD, full range of motion, range of motion, supple Cardiovascular: normal exam, no JVD, no ectopics, normal sinus rhythm, PMI normal, regular rate & rhythm, no murmur, normal peripheral pulses, no peripheral edema Respiratory: aerating well, chest non-tender, no respiratory distress, trachea midline, on oxygen, rhonchi (LLL), wheezing, cough ABD: normal exam, non-distended, normal bowel sounds, no rebound, soft, no tenderness, no guarding, no organomegaly, no palpable mass, bowel sounds present (all quads) Extremities: normal exam, full range of motion, moves all, normal capillary refill, no peripheral edema, femoral pulses (present), warm, pedal pulses ( present) Musculoskeletal: normal exam, equal muscle strength, motor intact, sensation intact Skin: normal exam, dry, intact, no gross abnormalities, warm, pale Neuro: normal exam, alert, 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, intact, no deficit, normal mood/affect, oriented, speech clear Laboratory data: Laboratory Tests 11/05/16 0605: Sodium 136, Potassium 4.4, Chloride 103, Carbon Dioxide 27, BUN 17, Creatinine 1.0, Estimated Creat Clear 75, Estimated GFR (MDRD) 72, Glucose 93, Calcium 7.7 L, Total Bilirubin 0.9, AST 78 H, ALT 50, Alkaline Phosphatase 50, Total Protein 5.7 L, Albumin 2.7 L, Globulin 3.0, Albumin/Globulin Ratio 0.9 L, WBC 3.9 L, RBC 4.68, Hgb 14.2, Hct 42.7, MCV 91.4, RDW 14.0, Plt Count 65 L, MPV 11.3 H, Gran % 81.7 H, Gran # 3.2, Lymphocytes % 12.5, Monocytes % 5.5, Eosinophils % 0.1, Basophils % 0.1, Lymphocytes # 0.5 L, Monocytes # 0.2, Eosinophils # 0.0, Basophils # 0.0, PUBS MCHC 33.3, MCH 30.5 11/05/16 0600: Creatine Kinase 661 H, CK-MB (CK-2) Rel Index 0.4, CK and CKMB Interp 2.4, Troponin I 0.12 H 11/04/16 1710: Creatine Kinase 818 H, CK-MB (CK-2) Rel Index 0.6, CK and CKMB Interp 5.0 H, Troponin I 0.12 H 11/04/16 1120: Mycoplasma pneumon IgM NON-REACTIVE 11/04/16 0900: Sodium 135 L, Potassium 3.4 L, Chloride 103, Carbon Dioxide 25, BUN 24 H, Creatinine 1.1, Estimated Creat Clear 68, Estimated GFR (MDRD) 65, Glucose 123 H, Calcium 7.7 L, Total Bilirubin 1.0, AST 69 H, ALT 50, Alkaline Phosphatase 55, Total Protein 5.8 L, Albumin 2.7 L, Globulin 3.1, Albumin/Globulin Ratio 0.9 L 11/03/16 1505: Amylase 54, Lipase 233 11/03/16 1505: Sodium 128 L, Potassium 4.2, Chloride 95 L, Carbon Dioxide 28, BUN 24 H, Creatinine 1.5 H, Estimated Creat Clear 52, Estimated GFR (MDRD) 45, Glucose 123 H, Calcium 8.6, Total Bilirubin 1.4 H, AST 67 H, ALT 45, Alkaline Phosphatase 71, Total Protein 7.6, Albumin 3.4, Globulin 4.2 H, Albumin/ Globulin Ratio 0.8 L, WBC 4.4 L, RBC 5.50, Hgb 16.6, Hct 49.8, MCV 90.5, RDW 15.9, Plt Count 102 L, Gran % 82.5 H, Gran # 3.6, Lymphocytes % 14.1, Monocytes % 3.4, Lymphocytes # 0.6 L, Monocytes # 0.1, PUBS MCHC 33.3, MCH 30.2 Microbiology Date/Time Procedure - Status Source Growth 11/05 1119 Anaerobic Blood Culture - RECD BLOOD 11/05 1119 Aerobic Blood Culture - RECD BLOOD 11/05 1119 Anaerobic Blood Culture - RECD BLOOD 11/05 1119 Aerobic Blood Culture - RECD BLOOD Additional information: EKG is afib with a rate of 82. Plan: Assessment: Elevated troponin LLL Pneumonia CAD Atrial fibrillation Dehydration Recommendations: plan: 1. The patient was admitted to the hospital for weakness and diarrhea. The patient was found to have a LEFT lower lobe pneumonia. He is being treated with antibiotics per Dr. Jackson. 2. The patient did have an elevation in his troponin at 0.12. This may be from demand ischemia. However the patient does have a history of coronary artery disease. He will likely need to undergo LEFT cardiac catheterization, but given his LEFT lower lobe pneumonia he does need to be treated for that first. Depending on the clinical course of his hospitalization we may complete his LEFT cardiac catheterization during this hospitalization or even on an outpatient basis once he has recovered from his LEFT lower lobe pneumonia. He has only had one episode of chest pain since being in the hospital and that was after a coughing spell. However, if he does have continuing symptoms of chest pain or worsening chest pain then we may ultimately end up having to do the LEFT cardiac catheterization while he is hospitalized at this time. But for now the plan is to do his LEFT cardiac catheterization once he is recovered from his LEFT lower lobe pneumonia. 3. Coronary artery disease is present. 4. His blood pressure is well controlled. 5. LDL goal is less than 70. 6. His atrial fibrillation is rate controlled. He is on Xarelto for anticoagulation. 7. Will obtain an echocardiogram to evaluate his LV function. 8. Further recommendations pending the patient's response to treatment and results of his echocardiogram. Thank you for the option did help her chest pain in the care of this patient. at [id number]
--- NOTE | 2016-11-05 18:31 | RADIOLOGY REPORT PS360 ---
PROCEDURE: 2-D M-mode and color Doppler study INDICATIONS FOR THE TEST: Chest pain X COPD Heart Murmur Tobacco Smoking Palpitations FatigueX Syncope Edema HypertensionXDiabetes Mellitus Rheumatic Fever SOBXDOE Obesity HyperlipidemiaX Family History HD Additional History AF CAD ELEVATED TROP PNEUMONIA PATIENT INFORMATION HEIGHT: 71 WEIGHT:191 GENDER: Male B/P:115/67 2-D/M-MODE INTERPRETATION: 2-D MEASUREMENTS OBSERVED VALUES IN CMS Right Ventricular Dimension (RVDd) 2.7 Interventricular Septum (Thickness)(IVsd) .8 Left Ventricular Internal Dimensions(LVIDd) 5.8 Left Ventricular Posterior Wall (Thickness)(LVPWd) 1.0 Aortic Root 3.6 Aortic Cusp Separation 2.2 Left Atrial Dimensions (LAD) 4.2 2D 1. Left atrium is mildly enlarged, left ventricle is normal size, there is no concentric left ventricular hypertrophy present, visually estimated ejection fraction of 50% with no obvious regional wall motion abnormality, endocardial surfaces are somewhat poorly visualized. 2. The right atrium is mildly enlarged, right ventricle is normal size and contractility. 3. The aortic valve is minimally thickened and calcified. 4. The mitral valve leaflets and tricuspid valve leaflets are minimally thickened. 5. The pulmonic valve is poorly visualized. 6. There is no significant pericardial effusion noted. DOPPLER INTERROGATION: Doppler interrogation of the aortic, mitral and tricuspid valve reveals presence of mild aortic, mild mitral and tricuspid regurgitation, tricuspid regurgitant jet velocity is insufficient for calculation of the right ventricular systolic pressure. Diastolic parameters cannot be determined. CONCLUSION: 1. Mild biatrial enlargement, normal left ventricular size, visually estimated ejection fraction of 50% with no obvious regional wall motion abnormality, endocardial surfaces are somewhat poorly visualized. 2. Mildly enlarged right ventricle with normal contractility. 3. Mild aortic, mild mitral and tricuspid regurgitation. 4. No significant pericardial effusion noted.
[2016-11-06] VITALS (10 sets, daily range): BP systolic 90–139; BP diastolic 45–88
--- NOTE | 2016-11-06 08:15 | ACUTE CARE PROGRESS NOTE (QUA) ---
See Addendum Progress Notes Subjective Date 11/06/16 Time 0730 Note states that he had the best sleep after his fever went down; having leg cramps; deneis CP and SOB; no further diarrhea; still just wants liquids; did not drink very much yesterday; has walked to the bathroom and otherwise stays in the bed Objective Findings Microbiology 11/05 1921 BLOOD: Anaerobic Blood Culture - RECD 11/05 1921 BLOOD: Aerobic Blood Culture - RECD 11/05 1921 BLOOD: Anaerobic Blood Culture - RECD 11/05 1921 BLOOD: Aerobic Blood Culture - RECD Vital Signs Date Time Temp Pulse Resp B/P Pulse O2 O2 Flow FiO2 Ox Delivery Rate 11/06 0558 95 ROOM AIR 11/06 0400 98.0 77 16 108/47 94 ROOM AIR 11/05 2359 100.5 85 20 108/66 93 ROOM AIR 11/05 2232 100.8 11/05 2125 102.1 11/06 2051 102.1 11/06 2019 102.4 11/05 2001 84 16 110/52 92 ROOM AIR 11/05 1950 104.0 11/05 1945 102.1 84 16 110/52 92 11/05 1919 104.4 11/05 1607 98.5 92 20 131/78 95 ROOM AIR 11/05 1214 98.2 99 20 115/67 94 11/05 1200 98.8 105 20 123/71 94 ROOM AIR Current Medications Albuterol/Ipratropium 0 .STK-MED ONE INH (DC) Acetaminophen 0 .STK-MED ONE PO (DC) Acetaminophen 0 .STK-MED ONE PO (DC) Sodium Chloride 1,000 ML .STK-MED ONE IV (DC) Albuterol/Ipratropium 0 .STK-MED ONE INH (DC) Azithromycin 500 MG Q24H IV Sodium Chloride 250 ML Albuterol/Ipratropium 3 ML Q6HP PRN INH Ceftriaxone Sodium 1 GM Q24H IV Sodium Chloride 50 ML Guaifenesin/Dextromethorphan 10 ML Q4HP PRN PO Phenol SPRAY NEEDED FOR SORE THROAT PRN PRN PO Carvedilol 3.125 MG BID PO Rivaroxaban 20 MG DAILY PO Sodium Chloride 10 ML PRN PRN IV Acetaminophen 650 MG Q4HP PRN PO Diphenhydramine HCl 25 MG QHSP PRN PO Tramadol HCl 50 MG Q4HP PRN PO Loperamide HCl 2 MG PRN PRN PO Nicotine 21 MG DAILYP PRN TD Ondansetron HCl 4 MG Q8HP PRN IV Sodium Chloride 1,000 ML .[id number] IV 11/05 1500 11/05 2300 11/06 0700 Intake Total 1053 773 Output Total Balance 1053 773 Intake, IV 813 773 Intake, Oral 240 Output, Stool Last VS-Temp:98.0 B/P:108/47 Pulse:77 Resp:16 SaO2:95 ROOM AIR Last weight lbs:191 oz:1 K.665 Method:Bed Scales Exam General appearance: alert, no acute distress, awakened from sleep for exam Cardiovascular: irregularly irregular Respiratory: crackles and wheezing on the right ABD: non-distended, soft, no tenderness, bowel sounds present Extremities: no peripheral edema Assessment/Plan Problem List 1. Dehydration 2. Renal insufficiency 3. Diarrhea 4. Ileus 5. A-fib 6. Pneumonia 7. Chest pain 8. Hypokalemia Patient condition fair Plan: CBC, BMP, CXR; will change ABX; advance diet to full liquids; had blood cultures done last night This inpt stay is expected to cross 2 MNs from start of care Yes (Erum Raza APRN) Assessment/Plan Problem List 1. Dehydration 2. Renal insufficiency 3. Diarrhea 4. Ileus 5. A-fib 6. Pneumonia 7. Chest pain 8. Hypokalemia Comments: Patient seen and agree with above note. Fever noted, plan empiric antibiotic change today. Cardiology note reviewed. (Migue Jackson MD) at 0822 at 0826
[2016-11-06 08:34] LABS: HEMOGLOBIN 14.3 g/dL (14.1-18.0); LYMPH # 0.5 K/mm3 (0.7-4.5); LYMPH % 17.4 % (10-50)
[2016-11-06 09:00] LABS: NEUTROPHILS 82 % (42-76)
--- NOTE | 2016-11-06 14:09 | RADIOLOGY REPORT PS360 ---
CHEST(2 VIEWS-NOT PORTABLE) HISTORY: Fever, pneumonia new fever; pneumonia ORDERING PHYSICIAN: Migue Jackson MD PATIENT AGE: 76 years COMPARISON: 11/04/2016 FINDINGS: The cardiomediastinal silhouette and pulmonary vascularity are within normal limits. Increasing consolidation is present in the left lower lobe consistent with worsening pneumonia. No evidence of effusion. No other significant anomalies are evident. IMPRESSION: Worsening left lower lobe pneumonia
--- NOTE | 2016-11-06 17:20 | ACUTE CARE PROGRESS NOTE (QUA) ---
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 He's alert and in no acute distress. I placed some oxygen at 2 L and he seems to feel more comfortable with this. He is in no acute distress. He has an irregular rhythm on auscultation. He has bilateral rales, seems worse the RIGHT base. Objective Findings Last VS-Temp:98 B/P:110/60 Pulse:88 Resp:18 SaO2:92 ROOM AIR Last weight lbs:191 oz:1 K.665 Method:Bed Scales Assessment/Plan Problem List 1. Dehydration 2. Renal insufficiency 3. Diarrhea 4. Ileus 5. A-fib 6. Pneumonia 7. Chest pain 8. Hypokalemia Plan: recheck electrocardiogram. Repeat cardiac enzymes. As stated the nasal oxygen is in place and he seems comfortable this time. This inpt stay is expected to cross 2 MNs from start of care Yes at 9023
--- NOTE | 2016-11-06 17:20 | ACUTE CARE PROGRESS NOTE (QUA) ---
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 hollins is complaining of chest pain again this evening. He's alert and in no acute distress. I placed some oxygen at 2 L and he seems to feel more comfortable with this. He is in no acute distress. He has an irregular rhythm on auscultation. He has bilateral rales, seems worse the RIGHT base. Objective Findings Last VS-Temp:98 B/P:110/60 Pulse:88 Resp:18 SaO2:92 ROOM AIR Last weight lbs:191 oz:1 K.665 Method:Bed Scales Assessment/Plan Problem List 1. Dehydration 2. Renal insufficiency 3. Diarrhea 4. Ileus 5. A-fib 6. Pneumonia 7. Chest pain 8. Hypokalemia Plan: recheck electrocardiogram. Repeat cardiac enzymes. As stated the nasal oxygen is in place and he seems comfortable this time. This inpt stay is expected to cross 2 MNs from start of care Yes at 9778
[2016-11-07 03:31] VITALS: BP 130/70
[2016-11-07 06:48] LABS: HEMOGLOBIN 13.5 g/dL (14.1-18.0); LYMPH # 0.5 K/mm3 (0.7-4.5)
[2016-11-07 08:10] VITALS: BP 117/69
--- NOTE | 2016-11-07 08:18 | ACUTE CARE PROGRESS NOTE (QUA) ---
Progress Notes Subjective Date 11/07/16 Time 0801 Note Pt is sitting up on side of bed. He ate some breakfast, reports little appetite, denies N/V. Pt reports he did not rest well overnight due to low back and right hip discomfort, along with bilateral leg restlessness and cramping, wonders if he is receiving his home dose of ropinirole. Pt denies any further CP or SOB, is no longer using O2/NC. He continues with non-productive cough. He has been up to the BR, voiding well, had small BM overnight. Objective Findings Last VS-Temp:97.7 B/P:130/70 Pulse:87 Resp:18 SaO2:95 ROOM AIR Last weight lbs:191 oz:1 K.665 Method:Bed Scales Exam General appearance: alert, awake, no acute distress Eyes: anicteric, sclera clear Cardiovascular: no peripheral edema, irregular Respiratory: bilateral fine rales, diminished LLL ABD: non-distended, normal bowel sounds, soft, no tenderness, no guarding, no organomegaly Extremities: no peripheral edema, no calf tenderness, bilateral EMILY hose in place Skin: dry, intact, warm Neuro: alert, oriented, no focal deficit Reviewed: medications, vital signs, lab results, radiology report Assessment/Plan Problem List 1. Dehydration 2. Renal insufficiency 3. Diarrhea 4. Ileus 5. A-fib 6. Pneumonia 7. Chest pain 8. Hypokalemia Patient condition Fair Plan: Pt is afebrile today, sats 95% on RA. Troponin mildly elevated. Calcium remains low. EKG pending. Will discuss ropinirole with Dr. Jackson. This inpt stay is expected to cross 2 MNs from start of care Yes (GISELA CARDONA APRN) Assessment/Plan Problem List 1. Dehydration 2. Renal insufficiency 3. Diarrhea 4. Ileus 5. A-fib 6. Pneumonia 7. Chest pain 8. Hypokalemia Comments: Patient seen and agree with above note. OK to resume ropinirole, will add Pepcid and Mylanta as needed for dyspepsia. (Migue Jackson MD) at 0817 at 0847
[2016-11-07 12:00] VITALS: BP 111/66
[2016-11-07 16:00] VITALS: BP 97/58
[2016-11-07 19:50] VITALS: BP 135/83
[2016-11-07 20:15] VITALS: BP 135/83
[2016-11-08] VITALS (9 sets, daily range): BP systolic 118–145; BP diastolic 64–88
--- NOTE | 2016-11-08 08:21 | ACUTE CARE PROGRESS NOTE (QUA) ---
Progress Notes Subjective Date 11/08/16 Time 0730 Note Pt is sitting up on the side of the bed, states he rested well overnight. He reports he is tired although he is beginning to feel better. Pt reports he finished breakfast but ate little. Pt requesting regular diet in hopes of inspiring his appetite. Pt denies pain this morning, states he was up to the BR multiple times overnight to void, notes two very small BM's. Objective Findings Last VS-Temp:98.2 B/P:118/65 Pulse:76 Resp:18 SaO2:95 ROOM AIR Last weight lbs:191 oz:1 K.665 Method:Bed Scales Exam General appearance: alert, awake, no acute distress Cardiovascular: normal peripheral pulses, irregular Respiratory: diminished LLL with faint rales throughout ABD: non-distended, no rebound, soft, no tenderness, no guarding, no organomegaly, bowel sounds present Extremities: no peripheral edema, no calf tenderness, bilateral EMILY hose in place Neuro: alert, oriented, no focal deficit Reviewed: vital signs, lab results, nursing notes Assessment/Plan Problem List 1. Dehydration 2. Renal insufficiency 3. Diarrhea 4. Ileus 5. A-fib 6. Pneumonia 7. Chest pain 8. Hypokalemia Patient condition Improving Plan: Feeling better this morning. Will continue current care and discuss advancing diet with Dr. Jackson. This inpt stay is expected to cross 2 MNs from start of care Yes (GISELA CARDONA APRN) Assessment/Plan Problem List 1. Dehydration 2. Renal insufficiency 3. Diarrhea 4. Ileus 5. A-fib 6. Pneumonia 7. Chest pain 8. Hypokalemia Comments: Patient seen and agree with above note, decrease IVF today and advance diet, check CXR. (Migue Jackson MD) at 0821 at 0901
--- NOTE | 2016-11-08 13:24 | RADIOLOGY REPORT PS360 ---
CHEST(2 VIEWS-NOT PORTABLE) HISTORY: Follow-up pneumonia Pneumonia ORDERING PHYSICIAN: Migue Jackson MD PATIENT AGE: 76 years COMPARISON: 11/06/2016 FINDINGS: Persistent consolidation is present in the left lower lobe consistent with pneumonia minimally improved. The remaining lungs are clear and the cardiovascular structures are unremarkable. No obvious effusion. IMPRESSION: Slight improvement left lower lobe pneumonia
[2016-11-09] VITALS (7 sets, daily range): BP systolic 116–138; BP diastolic 74–98
[2016-11-09 07:17] LABS: HEMOGLOBIN 13.4 g/dL (14.1-18.0); LYMPH # 0.4 K/mm3 (0.7-4.5); LYMPH % 18.8 % (10-50)
--- NOTE | 2016-11-09 08:00 | ACUTE CARE PROGRESS NOTE (QUA) ---
Progress Notes Subjective Date 11/09/16 Time 0757 Note Patient feels better today, no new complaints. Objective Findings Laboratory Tests 11/09/16 0600: Sodium 141, Potassium 3.9, Chloride 106, Carbon Dioxide 28, BUN 9, Creatinine 0.8, Estimated Creat Clear 97, Estimated GFR (MDRD) 93, Glucose 82, Calcium 8.4 L, WBC 2.3 L, RBC 4.42 L, Hgb 13.4 L, Hct 40.4 L, MCV 91.5, RDW 14.3, Plt Count 96 L, MPV 10.0, Gran % 73.2, Gran # 1.7, Lymphocytes % 18.8, Monocytes % 6.0, Eosinophils % 1.8, Basophils % 0.2, Lymphocytes # 0.4 L, Monocytes # 0.1, Eosinophils # 0.0, Basophils # 0.0, PUBS MCHC 33.2, MCH 30.3 Vital Signs Date Time Temp Pulse Resp B/P Pulse O2 O2 Flow FiO2 Ox Delivery Rate 11/09 0432 97.3 73 20 124/77 94 ROOM AIR 11/08 2350 97.6 86 20 126/64 93 ROOM AIR 11/08 2137 20 11/08 2135 97.8 83 20 135/70 96 11/08 1918 97.8 83 20 135/70 96 ROOM AIR 11/08 1711 2 11/08 1645 97.5 77 20 133/86 95 ROOM AIR 11/08 1640 2 11/08 1500 2 11/08 1406 2 11/08 1351 2 11/08 1207 98.2 70 20 132/82 92 ROOM AIR 11/08 0900 98.0 79 20 145/76 93 11/08 0800 98.0 79 20 145/76 93 ROOM AIR I&O Past 24 Hrs-ending at 11/09 07 Intake Total 1930 Output Total Balance 1930 Last VS-Temp:97.3 B/P:124/77 Pulse:73 Resp:20 SaO2:94 ROOM AIR Last weight lbs:198 oz:6 K.981 Method:Bed Scales Exam General appearance: alert, awake, no acute distress ENT: mucous membranes moist Cardiovascular: regular rate & rhythm Respiratory: good air movement, crackles (left base) Assessment/Plan Problem List 1. Pneumonia Status: Acute 2. Dehydration Status: Resolved 3. Renal insufficiency 4. Diarrhea Status: Resolved 5. Ileus Status: Resolved 6. A-fib Status: Chronic 7. Chest pain Status: Resolved 8. Hypokalemia Status: Resolved This inpt stay is expected to cross 2 MNs from start of care Yes Comments: Patient is improving, continue current treatment. at 4141
--- NOTE | 2016-11-09 08:45 | ACUTE CARE PROGRESS NOTE (QUA) ---
Progress Notes Subjective Date 11/09/16 Time 0844 Assessment/Plan Problem List 1. Pneumonia Status: Acute 2. Dehydration Status: Resolved 3. Renal insufficiency 4. Diarrhea Status: Resolved 5. Ileus Status: Resolved 6. A-fib Status: Chronic 7. Chest pain Status: Resolved 8. Hypokalemia Status: Resolved This inpt stay is expected to cross 2 MNs from start of care Yes Antibiotic Stewardship (2) Current Culture Results Microbiology 11/05 1921 BLOOD: Anaerobic Blood Culture - RES 11/05 1921 BLOOD: Aerobic Blood Culture - RES Infxn that will respond? Yes Right drug,dose,and route? Yes More targeted antbx? No at 0844
[2016-11-09 08:59] LABS: CORRECTED WBC 2.3 K/mm3; NEUTROPHILS 78 % (42-76)
[2016-11-10] VITALS (7 sets, daily range): BP systolic 118–142; BP diastolic 61–77
--- NOTE | 2016-11-10 13:00 | ACUTE CARE PROGRESS NOTE (QUA) ---
Progress Notes Subjective Date 11/10/16 Time 1257 Note He is doing very well. He should be stable for discharge tomorrow. He has no specific complaints today other than being "lazy." Objective Findings Last VS-Temp:97.7 B/P:136/77 Pulse:67 Resp:18 SaO2:94 ROOM AIR Last weight lbs:198 oz:6 K.981 Method:Bed Scales His blood chemistries yesterday were good . His white blood cell count remains low. Exam General appearance: alert, no acute distress Eyes: anicteric, conjunctiva clear, PERRLA ENT: mucous membranes moist Neck: no JVD Cardiovascular: irregularly irregular Respiratory: good air movement, there are a few bibasilar rales. ABD: soft, no tenderness Extremities: no peripheral edema Musculoskeletal: equal muscle strength Skin: dry, intact, normal color Neuro: no deficit Reviewed: medications, vital signs, lab results Assessment/Plan Problem List 1. Pneumonia Status: Acute 2. Dehydration Status: Resolved 3. Renal insufficiency 4. Diarrhea Status: Resolved 5. Ileus Status: Resolved 6. A-fib Status: Chronic 7. Chest pain Status: Resolved 8. Hypokalemia Status: Resolved Patient condition Improving Plan: likely discharge tomorrow. This inpt stay is expected to cross 2 MNs from start of care Yes Antibiotic Stewardship (2) Infxn that will respond? Yes Right drug,dose,and route? Yes More targeted antbx? No at 1300
[2016-11-11 03:44] VITALS: BP 115/74
[2016-11-11 08:00] VITALS: BP 122/67
--- NOTE | 2016-11-11 08:30 | ACUTE CARE PROGRESS NOTE (QUA) ---
See Addendum Progress Notes Subjective Date 11/11/16 Time 0827 Note Patient with no new complaints today, wants to go home. Objective Findings Vital Signs Date Time Temp Pulse Resp B/P Pulse O2 O2 Flow FiO2 Ox Delivery Rate 11/11 0800 97.2 80 18 122/67 95 ROOM AIR 11/11 0344 97.7 82 18 115/74 97 ROOM AIR 11/10 2338 97.9 79 18 118/67 94 ROOM AIR 11/10 1950 97.9 71 18 132/69 91 07 1915 97.9 71 18 132/69 91 ROOM AIR 11/10 1600 98.4 75 18 142/75 92 ROOM AIR 11/10 1200 98.3 86 18 129/74 98 ROOM AIR I&O Past 24 Hrs-ending at 0711/11 0700 Intake Total 3819 Output Total Balance 3819 Last VS-Temp:97.2 B/P:122/67 Pulse:80 Resp:18 SaO2:95 ROOM AIR Last weight lbs:198 oz:6 K.981 Method:Bed Scales Exam General appearance: alert, awake, no acute distress Cardiovascular: regularly irregular Respiratory: good air movement, better air movement in left base Extremities: no peripheral edema Assessment/Plan Problem List 1. Pneumonia Status: Acute 2. Dehydration Status: Resolved 3. Renal insufficiency 4. Diarrhea Status: Resolved 5. Ileus Status: Resolved 6. A-fib Status: Chronic 7. Chest pain Status: Resolved 8. Hypokalemia Status: Resolved This inpt stay is expected to cross 2 MNs from start of care Yes Comments: Patient has improved, plan discharge home today, f/u in office in 1 week. Antibiotic Stewardship (2) Infxn that will respond? Yes Right drug,dose,and route? Yes More targeted antbx? No at 0802
[2016-11-11] MEDS ORDERED: CEFDINIR300 M1 PO (08:31)
[2016-11-11] MEDS ORDERED: DOXYCYCLINE HY100 MG PO (08:32)
--- NOTE | 2016-11-13 11:09 | DISCHARGE SUMMARY STANDARD ---
Discharge Summary (FCA2) Date of admission: 11/03/16 Date of discharge: 11/11/16 Problem List: 1. Pneumonia 2. Dehydration 3. Renal insufficiency 4. Diarrhea 5. Ileus 6. A-fib 7. Chest pain 8. Hypokalemia History of present illness: Mr. Spencer was a 76 year old male with a history of CAD and A-Fib who presented to [facility] ER feeling so weak that he could hardly walk. The weakness had been going on for about 1 week and he had remained in bed for 2 days. He had developed diarrhea with stools x4-5 for about 3 days. He had had some nausea but denied vomiting or abdominal pain. He did state that he had had chills with a fever up to 102. He also had a cough for about 2 months with PND and RN. He was evaluated in the ER and felt to be dehydrated and was admitted for IVF and monitoring. Exam on admission: General appearance: alert, active, no acute distress, sitting on bedside eating his breakfast ( clear liquids) Eyes: anicteric ENT: dry tongue; teeth are out Neck: no carotid bruit, full range of motion, supple, lymphadenopathy (absent ), thyroid (normal) Cardiovascular: normal peripheral pulses, no peripheral edema, irregularly irregular Respiratory: aerating well, clear to auscultation (bilat anterior and posterior) ABD: soft, no tenderness, no guarding, no organomegaly, bowel sounds present Extremities: no peripheral edema, no calf tenderness Neuro: alert, oriented Hospital Course: The patient was admitted for IVF and monitoring. CXR showed a LLL infiltrate. Abdominal series showed possible ileus. The following day, the patient experienced an episode of chest pain. Repeat CXR showed no change in LLL pneumonia. EKG showed Afib and troponin was elevated. Cardiology consult was ordered. By 11/05/16, his labs were improving. Echo was unremarkable. Cardiology recommended outpatient cardiac catheterization after pneumonia resolved. On 11/06, the patient was feeling worse. He was febrile with Tmax 104.0F. CXR showed worsening of LLL pneumonia. Blood cultures were obtained. Antibiotic changes were made. In the following days, patient began to slowly feel better and by CXR showed pneumonia was improving and blood cultures were negative. His diet was advanced and on 11/11/16 he was stable to be discharged home on oral antibiotics. Discharge medications: Continue taking these medications: Atorvastatin Calcium (Atorvastatin) 80 MG TABLET 20 MILLIGRAM ORAL DAILY Rivaroxaban (Xarelto) 20 MG TABLET 20 MILLIGRAM ORAL AT BEDTIME NIGHTLY ROPINIROLE HCL (Ropinirole 1MG) 1 MG TABLET 2 MILLIGRAM ORAL AT BEDTIME NIGHTLY Furosemide (Lasix) (Unknown Strength) TABLET 20 MILLIGRAM ORAL DAILY CHOLECALCIFEROL (VITAMIN D3) (Vitamin D3) 5,000 UNIT CAPSULE 5,000 INTER.UNIT ORAL DAILY Acetaminophen (Tylenol) 325 MG TABLET 650 MILLIGRAM ORAL EVERY 8 HOURS (08/24/20) Cyanocobalamin (Vitamin B-12) (Vitamin B12) 2,500 MCG TABLET 500 MICROGRAM ORAL DAILY Carvedilol (Carvedilol) 3.125 MG TABLET 3.125 MILLIGRAM ORAL TWICE A DAY MULTIVITAMIN (Multi-Vitamins) 1 EACH TABLET 1 TABLET ORAL DAILY Start taking the following new medications: Cefdinir (Cefdinir) 300 MG CAPSULE 300 MILLIGRAM ORAL DAILY Qty = 10 No Refills Doxycycline Hyclate (Doxycycline Hyclate) 100 MG CAPSULE 100 MILLIGRAM ORAL DAILY Qty = 5 No Refills Disposition: Follow up with: Migue Jackson MD Follow up: 7 DAYS Activity: Cont Current activity Diet: Continue same diet Discharge to: HOME Agency needed? N at 1101
== END 2016-11-11 09:43 | disposition home or self-care (01) | DRG 194 ==
LOC: ER 14:25 → 2ND 16:10
PROVIDERS: Emergency Medicine; Family Medicine
DX: J18.9 Pneumonia, unspecified organism (principal); K56.7 Ileus, unspecified; E86.0 Dehydration; I48.2 Chronic atrial fibrillation; Z79.01 Long term (current) use of anticoagulants; E87.6 Hypokalemia; I25.10 Atherosclerotic heart disease of native coronary artery without angina pectoris
CPT/HCPCS: J0456; J0692; J2405; J2543

== ENCOUNTER → 2016-11-18 | Outpatient (CLI) | payer MEDICARE ==
[~2016-11-18] MED LIST changes: +CARVEDILOL3.125 M1 PO; +CEFDINIR300 M1 PO; +DOXYCYCLINE HY100 MG PO; +LASIX20 MG PO; +MULTI-VITAMINS1 TAB PO; +TYLENOL325 MG PO; +VITAMIN B122500 MC1 PO; +VITAMIN D5000 I2 PO
--- NOTE | 2016-11-18 10:34 | RADIOLOGY REPORT PS360 ---
CHEST(2 VIEWS-NOT PORTABLE) HISTORY: Chest pain, pneumonia PENUMONIA ORDERING PHYSICIAN: Migue Jackson MD PATIENT AGE: 76 years COMPARISON: 11/08/2016 FINDINGS: The cardiomediastinal silhouette and pulmonary vascularity are within normal limits. Left lower lobe pneumonia has shown moderate improvement compared to the previous exam. There remains some minimal atelectatic change in the left lower lobe and some mild residual opacification in the retrocardiac region on the left. Right lung is clear. IMPRESSION: 1. Persistent but improving left lower lobe pneumonia
== END ==
LOC: RAD 10:15
DX: J18.9 Pneumonia, unspecified organism (principal)

== ENCOUNTER 2017-01-12 10:42 | Emergency (ER) | payer MEDICARE ==
[~2017-01-12] VITALS: Ht 181.6 cm; Wt 89.4 kg
--- NOTE | 2017-01-12 10:47 | Emergency Room Report ---
History of Present Illness Time Seen by [id number] Presenting Problem in Triage Pt arrived: Presenting Problem: Onset of symptoms date/time:/ or onset unknown for: Treatment Prior to Arrival: [employer] Provided by: Sepsis Risk Assessment: Temp: B/P: MAP: Pulse: Resp: Recent fever? Clinical Suspician of Infection? Mental Status: Sepsis Risk: Have you (or family members/close friends) recently traveled outside the [place]? If Yes, where/when: Have you had exposure to infectious disease within the past month? TB? Other? Specify: Source patient, RN notes reviewed Exam Limitations no limitations Comment In November, pt had a CT scan here and told he had some slipped discs in his low back and he saw Dr. Jackson who scheduled him to see Dr. Ramirez for JEREMY in his back. He comes to the ED because he needs something for pain and inflammation until he can get in to see Dr Ramirez Cardiac Chest Pain Chest pain indicative of cardiac No ALLERGIES Coded Allergies: codeine (UNKNOWN 12/23/16) Home Medications Reported Medications Rivaroxaban (Xarelto) 20 MG PO QHS CHOLECALCIFEROL (VITAMIN D3) (Vitamin D3) 5,000 IU PO DAILY MULTIVITAMIN (Multi-Vitamins) 1 TAB PO DAILY Furosemide (Lasix) 20 MG PO DAILY Acetaminophen (Tylenol) 650 MG PO Q8 Cyanocobalamin (Vitamin B-12) (Vitamin B12) 500 MCG PO DAILY ROPINIROLE HCL (Ropinirole 1MG) 2 MG PO QHS Carvedilol 3.125 MG PO BID CETIRIZINE HCL (Cetirizine 10MG) 10 MG PO DAILY Atorvastatin Calcium (Atorvastatin) 40 MG PO DAILY Ranitidine Hcl (Ranitidine 150MG) 150 MG PO BID History Medical History General CAD? Yes Angina: Yes [place]: No Hypertension? No Hyperlipidemia? Yes CHF? No DVT? No PE? No COPD? No Asthma? No Anemia? No GERD? No Gastric ulcers? No GI Bleed? No Hernia? No Thyroid Problems? No Hypothyroidism? No CVA? No Seizures? Yes Diabetes? No Renal Insuffiency? No End Stage Renal Disease? No UTI? No Stones? No BPH? Yes GB Disease: No Nephritic Syndrome? No Asplenia? No Hepatitis? No Sickle Cell Disease? No Arthritis? No Migraines? No Cataracts? Yes Glaucoma? No MRSA? No HIV? No TB? No Anxiety? No Depression? No Cancer? Yes Site: PROSTATE More? Yes Additional hx: atrial fib, PNEUMONIA Immunization Hx DT/Tetanus 1-4 Years Ago Flu 2015-FSN Pneumonia Received In Past Surgical Hx Previous Surgery?Y LT FOOT CRUSH INJ 1956 PROSTATE SURGERY 2010([place]) IMPLANTED URINARY CONTROL SYSTEM 06/24 CATARACT SX GALLBLADDER Family History Family Hx Diabetes No CAD Yes Hypertension Yes Hyperlipidemia No Cancer Yes TB No Social History Smoking Hx Packs/day N/A Alcohol Alcohol: No Review of Systems All Other Systems Reviewed and Negative Constitutional see HPI Musculoskeletal see HPI Physical Exam Vital Signs Vital Signs Date Time Temp Pulse Resp B/P Pulse O2 O2 Flow FiO2 Ox Delivery Rate 01/12 1045 97.9 77 20 124/73 96 General Appearance normal appearance, WD/WN, no apparent distress Respiratory Status No: respiratory distress. Cardiovascular normal exam, regular rate/rhythm Neurologic Decreased reflexes in both legs and pain in low back radiating to rightleg Medical Decision Making LABS/Meds/Orders Pt receiving controlled substance in ED? Yes David was queried for this patient? Yes Reference #: [id number] Risks/benefits of using a controlled substance for treatment were not discussed w/pt Departure Departure Time of Disposition 1111 Disposition DC Home or Self Care(routine) Clinical Impression Primary Impression: Low back pain Qualifiers: Chronicity: chronic Back pain laterality: left Sciatica presence: with sciatica Sciatica laterality: sciatica of right side Qualified Code: M54.41 - Lumbago with sciatica, right side Condition STABLE Referrals Manuel LO,[facility] (Family): 3 Days-Call Office Patient Instructions DI for Low Back Pain, Low Back Pain Additional Instructions Given anti-inflammatory and a pain med and advised to followup with Dr Jackson to schedule Physical Therapy. Discharge Counseling Counseled pt/family regarding diagnosis, test results, medications/RX, home care, follow up needs Prescriptions Current Visit Scripts DICLOFENAC SODIUM (Diclofenac 50MG) 50 MG PO BID #60 TAB HYDROCODONE 5MG/APAP 325MG (Hydrocodon-Acetaminophen 5-325) 1 TAB PO Q4HP PRN pain #18 TAB ED Critical Care Critical Care No If Critical Care minutes are documented, the time involved in the performance of seperately reportable procedures was not counted toward critical care time documented. I directly delivered medical care to this critically ill and/or injured patient. Timely evaluation and treatment was necessary to address the significant organ system(s) dysfunction present in this patient. at 1115
[2017-01-12 11:24] VITALS: BP 118/66
--- OUTSIDE RECORDS SUMMARY | 2017-01-22 21:11 | External Medical Summary Rpt ---
Author Author , MAT Mtz MAT Address Unknown Phone [email or web address] Purpose Continuity of Care Document - 11-03-2016 through 2016 Results Labs Lab Lab Date Result Refere Interp Status Commen Order Detail nces retati t Range on Urinalysis dipstick W Reflex Microscopic panel in Urine (11-21-2016 20:58) Bacteri TRACE O complet a 017 ed [Presen 20:58 ce] in Urine sedimen t by Light microsc opy Erythro NONE 0 complet cytes 017 ed [Presen 20:58 ce] in Urine sedimen t by Light microsc opy Epithel NONE OCC complet ial 017 ed cells.s 20:58 quamous [Presen ce] in Urine sedimen t by Microsc opy high power field Urinalysis dipstick W Reflex Microscopic panel in Urine (11-21-2016 20:58) Appeara CLEAR CLEAR complet nce of 017 ed Urine 20:58 Bilirub NEGATIV NEG complet in 017 E ed [Presen 20:58 ce] in Urine by Test strip Erythro NEGATIV NEG complet cytes 017 E ed [Presen 20:58 ce] in Urine Color YELLOW YELLOW complet of 017 ed Urine 20:58 Ketones NEGATIV NEG complet 017 E ed [Presen 20:58 ce] in Urine by Automat ed test strip Mucus NEGATIV NEG complet [Presen 017 E ed ce] in 20:58 Urine sedimen t by Light microsc opy Nitrite NEGATIV NEG complet 017 E ed [Presen 20:58 ce] in Urine by Test strip Urobili 0.2 NEG complet nogen 017 ed [Presen 20:58 ce] in Urine by Test strip Differential panel, method unspecified - (11-09-2016 06:00) [place] 3+ complet cells 017 ed [Presen 06:00 ce] in Blood by Light microsc opy LYMPH 14 % 10% - Normal complet 017 50% ed 06:00 Platele MOD complet ts 017 DECREAS ed [Presen 06:00 E ce] in Blood by Light microsc opy [place] 1+ complet cytosis 017 ed 06:00 [Presen ce] in Blood by Light microsc opy Differential panel, method unspecified - (11-06-2016 08:25) LYMPH 13 % 10% - Normal complet 017 50% ed 08:25 Platele MARKED complet ts 017 DECREAS ed [Presen 08:25 E ce] in Blood by Light microsc opy Mycoplasma pneumoniae IgM Ab [Presence] in Serum by Immunoassay (11-04-2016 11:20) Mycopla NON-VENKATESH NONREAC complet sma 017 CTIVE TIVE ed pneumon 11:20 iae IgM Ab [Presen ce] in Serum by Immunoa ssay
--- OUTSIDE RECORDS SUMMARY | 2017-01-22 21:11 | External Medical Summary Rpt ---
Author Author , MAT Mtz MAT Address Unknown Phone [email or web address] Purpose Continuity of Care Document - 11-03-2016 [...] Differential panel, method unspecified - (11-09-2016 06:00) [place] 3+ complet cells 017 ed [Presen 06:00 [...]
--- OUTSIDE RECORDS SUMMARY | 2017-01-22 21:12 | External Medical Summary Rpt ---
Author Author , MAT RIVERO Address Unknown Phone [email or web address] Immunization Name Date Rout CVX Reac Dose Comm Prov Is Faci e tion ent ider Refu lity Give sed n Infl - Intr 135 0.5 Hist D049 No D049 uenz 8-20 amus mL oric 01 01 a, 17 cula al High r Info rmat Dose ion - Sour ce Unsp ecif ied Tdap - Intr 115 0.5 Hist D049 No D049 , 8-20 amus mL oric 01 01 Adso 17 cula al rbed r Info rmat ion - Sour ce Unsp ecif ied
--- OUTSIDE RECORDS SUMMARY | 2017-01-22 21:12 | External Medical Summary Rpt ---
Author Author , MAT RIVERO Address Unknown Phone [email or web address] Immunization Name Date Rout CVX Reac Dose [...]
--- OUTSIDE RECORDS SUMMARY | 2017-01-22 21:13 | External Medical Summary Rpt ---
Author Author [facility], [facility] Organization [facility] Address Unknown Phone Unavailable Results Comprehensive metabolic 2000 panel in Serum or Plasma Observa Value Referen Units Interpr Notes Date tion ce etation Range Albumin/G 1.1 - 1.8 No Low No Nov 21 lobulin informati informati 2016 9:25 [Mass on in on in PM ratio] in source source Serum or data data Plasma Albumin 3.4 - 5.0 gm/dL Low No Nov 21 [Mass/vol informati 2016 9:25 ume] in on in PM Serum or source Plasma data Alkaline 46 - 116 U/L Normal No Nov 21 phosphata informati 2016 9:25 se on in PM [Enzymati source c data activity/ volume] in Serum or Plasma Bilirubin 0.2 - 1.0 mg/dL Normal No Nov 21 .total informati 2016 9:25 [Mass/vol on in PM ume] in source Serum or data Plasma Urea 7 - 18 mg/dL Normal No Nov 21 nitrogen informati 2016 9:25 [Mass/vol on in PM ume] in source Serum or data Plasma Calcium 8.5 - mg/dL Normal No Nov 21 [Mass/vol 10.1 informati 2017 9:25 ume] in on in PM Serum or source Plasma data Chloride 98 - 107 mmoL/L Normal No Nov 21 [Moles/vo informati 2016 9:25 lume] in on in PM Serum or source Plasma data Carbon 21.0 - mmoL/L Normal No Nov 21 dioxide, 32.0 informati 2017 9:25 total on in PM [Moles/vo source lume] in data Serum or Plasma Creatinin 0.70 - mg/dL Normal No Nov 21 e 1.30 informati 2017 9:25 [Mass/vol on in PM ume] in source Serum or data Plasma Creatinin 50 - 200 ML/MIN Normal No Nov 21 e renal informati 2017 9:25 clearance on in PM source predicted data by Cockcroft -Gault formula Estimated >60 ML/MIN No REFERENCE Nov 21 informati RANGE: 2017 9:25 glomerula on in >60 PM r source ML/MIN/1. filtratio data 73 SQUARE n rate METERSIf (GF this patient is -A merican, then multiply theresult by 1.210. Globulin 1.3 - 3.2 gm/dL High No Nov 21 [Mass/vol informati 2016 9:25 ume] in on in PM Serum source data Glucose 74 - 106 mg/dL High No Nov 21 [Mass/vol informati 2016 9:25 ume] in on in PM Serum or source Plasma data Potassium 3.5 - 5.1 mmoL/L Normal No Nov 212016 9:25 [Moles/vo on in PM lume] in source Serum or data Plasma Sodium 136 - 145 mmoL/L Normal No Nov 21 [Moles/vo 2016 9:25 lume] in on in PM Serum or source Plasma data Aspartate 15 - 37 U/L Normal No Nov 21 inform2016 9:25 aminotran on in PM sferase source [Enzymati data c activity/ volume] in Serum or Plasma Alanine 12 - 78 U/L Normal No Nov 21 aminotran 2016 9:25 sferase on in PM [Enzymati source c data activity/ volume] in Serum or Plasma Protein 6.4 - 8.2 gm/dL Normal No Nov 21 [Mass/vol informati 2016 9:25 ume] in on in PM Serum or source Plasma data CBC W Auto Differential panel in Blood Observa Value Referen Units Interpr Notes Date tion ce etation Range Basophils 0 - 0.2 K/MM3 Normal Nov 212016 9:25 [#/volume on in PM ] in source Blood by data Automated count Basophils 0.1 - 2.0 % Normal No Nov 21 informati 2016 9:25 leukocyte on in PM s in source Blood by data Automated count Eosinophi 0.0 - 0.4 K/mm3 Normal No Nov 21 ls informati 2016 9:25 [#/volume on in PM ] in source Blood by data Automated count Eosinophi 0.1 - % Normal No Nov 21 ls/100 12.0 inform2016 9:25 leukocyte on in PM s in source Blood by data Automated count Granulocy 1.3 - 8.0 K/mm3 Normal No Nov 21 win inform2016 9:25 [#/volume on in PM ] in source Blood by data Automated count Granulocy 37.0 - % Normal No Nov 21 win/100 80.0 informati 2017 9:25 leukocyte on in PM s in source Blood by data Automated count Hematocri 42.0 - % Low No Nov 21 t [Volume 52.0 ati 2016 9:25 on in PM Fraction] source of Blood data Hemoglobi 14.1 - g/dL Low No Nov 21 n 18.0 informati 2016 9:25 [Mass/vol on in PM ume] in source Blood data Lymphocyt 0.7 - 4.5 K/mm3 Normal No Nov 21 es informati 2017 9:25 [#/volume on in PM ] in source Unspecifi data ed specimen by Automated count Lymphocyt 10 - 50 % Normal No Nov 21 es informati 2016 9:25 [#/volume on in PM ] in source Unspecifi data ed specimen by Automated count Erythrocy 27 - 31.2 pg Normal No Nov 21 te mean 2016 9:25 corpuscul on in PM ar source hemoglobi data n [Entitic mass] Erythrocy 31.8 - g/dl Normal No Nov 21 te mean 35.4 informati 2016 9:25 corpuscul on in PM ar source hemoglobi data n concentra tion [Mass/vol ume] by Automated count Erythrocy 82.2 - fl Normal No Nov 21 te mean 97.8 informati 2017 9:25 corpuscul on in PM ar volume source [Entitic data volume] by Automated count Monocytes 0.1 - 1.0 K/mm3 Normal No Nov 21 informati 2016 9:25 [#/volume on in PM ] in source Blood by data Automated count Monocytes 1.7 - 9.3 % Normal No Nov 21 / informati 2016 9:25 leukocyte on in PM s in source Blood by data Automated count Platelet 7.4 - fl Normal No Nov 21 mean 10.4 informati 2016 9:25 volume on in PM [Entitic source volume] data in Blood by Automated count Platelets 142 - 424 K/mm3 No No Nov 21 informati informati 2017 9:25 [#/volume on in on in PM ] in source source Blood data data Erythrocy 4.6 - 6.2 M/mm3 Low No Nov 21 win informati 2016 9:25 [#/volume on in PM ] in source Amniotic data fluid Erythrocy 11.5 - % Normal No Nov 21 te 17.5 informati 2017 9:25 distribut on in PM ion width source [Entitic data volume] by Automated count Leukocyte 4.8 - K/MM3 Normal No Nov 10 s 10.8 informati 2017 9:25 [#/volume on in PM ] in source Blood data Urinalysis dipstick W Reflex Microscopic panel in Urine Observa Value Referen Units Interpr Notes Date tion ce etation Range Appeara CLEAR CLEAR No No No Nov 21 nce of informa informa informa 2017 Urine tion in tion in tion in 8:58 PM source source source data data data Bacteri TRACE O No No No Nov 21 a informa informa informa 2016 [Presen tion in tion in tion in 8:58 PM ce] in source source source Urine data data data sedimen t by Light microsc opy Bilirub NEGATIV NEG No No No Nov 21 in E informa informa informa 2016 [Presen tion in tion in tion in 8:58 PM ce] in source source source Urine data data data by Test strip Erythro NEGATIV NEG No No No Nov 21 cytes E informa informa informa 2016 [Presen tion in tion in tion in 8:58 PM ce] in source source source Urine data data data Color YELLOW YELLOW No No No Nov 21 of informa informa informa 2016 Urine tion in tion in tion in 8:58 PM source source source data data data Glucose NEG No No No Nov 21 [Mass/vol informati informati informati 2017 8:58 ume] in on in on in on in PM Urine by source source source Test data data data strip Ketones NEGATIV NEG mg/dL No No Nov 21 E informa informa 2016 [Presen tion in tion in 8:58 PM ce] in source source Urine data data by Automat ed test strip Mucus NEGATIV NEG No No No Nov 21 [Presen E informa informa informa 2016 ce] in tion in tion in tion in 8:58 PM Urine source source source sedimen data data data t by Light microsc opy Nitrite NEGATIV NEG No No No Nov 21 E informa informa informa 2016 [Presen tion in tion in tion in 8:58 PM ce] in source source source Urine data data data by Test strip pH of 5.0 - 8.5 No Normal No Nov 21 Urine informati informati 2017 8:58 on in on in PM source source data data Protein NEG mg/dL No No Nov 21 [Mass/vol informati informati 2017 8:58 ume] in on in on in PM Urine by source source Automated data data test strip Erythro NONE 0 rbc/hpf No No Nov 21 cytes informa informa 2016 [Presen tion in tion in 8:58 PM ce] in source source Urine data data sedimen t by Light microsc opy Specific 1.005 - No Normal No Nov 21 gravity 1.030 informati informati 2017 8:58 of Urine on in on in PM source source data data Epithel NONE OCC #/hpf No No Nov 21 ial informa informa 2017 cells.s tion in tion in 8:58 PM quamous source source data data [Presen ce] in Urine sedimen t by Microsc opy high power field Urobili 0.2 NEG E.U./dL No No Nov 21 nogen informa informa 2016 [Presen tion in tion in 8:58 PM ce] in source source Urine data data by Test strip Leukocyte O wbc/hpf No No Nov 21 s informati informati 2017 8:58 [#/volume on in on in PM ] in source source Urine data data Urinalysis dipstick W Reflex Microscopic panel in Urine Observa Value Referen Units Interpr Notes Date tion ce etation Range Appeara CLEAR CLEAR No No No Nov 21 nce of informa informa informa 2017 Urine tion in tion in tion in 8:58 PM source source source data data data Bilirub NEGATIV NEG No No No Nov 21 in E informa informa informa 2016 [Presen tion in tion in tion in 8:58 PM ce] in source source source Urine data data data by Test strip Erythro NEGATIV NEG No No No Nov 21 cytes E informa informa informa 2016 [Presen tion in tion in tion in 8:58 PM ce] in source source source Urine data data data Color YELLOW YELLOW No No No Nov 21 of informa informa informa 2017 Urine tion in tion in tion in 8:58 PM source source source data data data Glucose NEG No No No Nov 21 [Mass/vol informati informati informati 2016 8:58 ume] in on in on in on in PM Urine by source source source Test data data data strip Ketones NEGATIV NEG mg/dL No No Nov 21 E informa inform2016 [Presen tion in tion in 8:58 PM ce] in source source Urine data data by Automat ed test strip Mucus NEGATIV NEG No No No Nov 21 [Presen E informa informa 2016 ce] in tion in tion in tion in 8:58 PM Urine source source source sedimen data data data t by Light microsc opy Nitrite NEGATIV NEG No No No Nov 21 E informa informa inform2016 [Presen tion in tion in tion in 8:58 PM ce] in source source source Urine data data data by Test strip pH of 5.0 - 8.5 No Normal No Nov 21 Urine informati informati 2016 8:58 on in on in PM source source data data Protein NEG mg/dL No No Nov 21 [Mass/vol informati informati 2016 8:58 ume] in on in on in PM Urine by source source Automated data data test strip Specific 1.005 - No Normal No Nov 21 gravity 1.030 informati informati 2016 8:58 of Urine on in on in PM source source data data Urobili 0.2 NEG E.U./dL No No Nov 21 nogen informa 2016 [Presen tion in tion in 8:58 PM ce] in source source Urine data data by Test strip CBC W Auto Differential panel in Blood Observa Value Referen Units Interpr Notes Date tion ce etation Range Basophils 0 - 0.2 K/MM3 Normal No Nov 09 informati 2016 6:00 [#/volume on in AM ] in source Blood by data Automated count Basophils 0.1 - 2.0 % Normal No Nov 09 /100 informati 2016 6:00 leukocyte on in AM s in source Blood by data Automated count Leukocyte No K/mm3 No No Nov 09 s informati informati informati 2016 6:00 [#/volume on in on in on in AM ] source source source corrected data data data for nucleated erythrocy win in Blood Eosinophi 0.0 - 0.4 K/mm3 Normal No Nov 09 ls informati 2016 6:00 [#/volume on in AM ] in source Blood by data Automated count Eosinophi 0.1 - % Normal No Nov 09 ls/100 12.0 informati 2016 6:00 leukocyte on in AM s in source Blood by data Automated count Granulocy 1.3 - 8.0 K/mm3 Normal No Nov 09 win informati 2016 6:00 [#/volume on in AM ] in source Blood by data Automated count Granulocy 37.0 - % Normal No Nov 09 win/100 80.0 informati 2016 6:00 leukocyte on in AM s in source Blood by data Automated count Hematocri 42.0 - % Low No Nov 09 t [Volume 52.0 informati 2016 6:00 on in AM Fraction] source of Blood data Hemoglobi 14.1 - g/dL Low No Nov 09 n 18.0 informati 2016 6:00 [Mass/vol on in AM ume] in source Blood data Lymphocyt 0.7 - 4.5 K/mm3 Low No Nov 09 es informati 2016 6:00 [#/volume on in AM ] in source Unspecifi data ed specimen by Automated count Lymphocyt 10 - 50 % Normal No Nov 09 es informati 2016 6:00 [#/volume on in AM ] in source Unspecifi data ed specimen by Automated count Erythrocy 27 - 31.2 pg Normal No Nov 09 te mean informati 2016 6:00 corpuscul on in AM ar source hemoglobi data n [Entitic mass] Erythrocy 31.8 - g/dl Normal No Nov 09 te mean 35.4 informati 2016 6:00 corpuscul on in AM ar source hemoglobi data n concentra tion [Mass/vol ume] by Automated count Erythrocy 82.2 - fl Normal No Nov 09 te mean 97.8 informati 2016 6:00 corpuscul on in AM ar volume source [Entitic data volume] by Automated count Monocytes 0.1 - 1.0 K/mm3 Normal No Nov 09 informati 2016 6:00 [#/volume on in AM ] in source Blood by data Automated count Monocytes 1.7 - 9.3 % Normal No Nov 09 / informati 2017 6:00 leukocyte on in AM s in source Blood by data Automated count Platelet 7.4 - fl Normal No Nov 09 mean 10.4 informati 2016 6:00 volume on in AM [Entitic source volume] data in Blood by Automated count Platelets 142 - 424 K/mm3 Low No Nov 09 inform2016 6:00 [#/volume on in AM ] in source Blood data Erythrocy 4.6 - 6.2 M/mm3 Low No Nov 09 win informati 2016 6:00 [#/volume on in AM ] in source Amniotic data fluid Erythrocy 11.5 - % Normal No Nov 09 te 17.5 informati 2016 6:00 distribut on in AM ion width source [Entitic data volume] by Automated count Leukocyte 4.8 - K/MM3 Low No Nov 09 s 10.8 informati 2016 6:00 [#/volume on in AM ] in source Blood data Differential panel, method unspecified - Observa Value Referen Units Interpr Notes Date tion ce etation Range Yonatan 3+ No No No No Nov 09 cells informa informa informa informa 2016 [Presen tion in tion in tion in tion in 6:00 AM ce] in source source source source Blood data data data data by Light microsc opy LYMPH 14 10 - 50 % Normal No Nov 09 inform2016 tion in 6:00 AM source data Monocytes 2 - 9 % Normal No Nov 09 /100 informati 2016 6:00 leukocyte on in AM s in source Blood by data Automated count Nucleated 0 - 1 % Normal No Nov 09 inform2016 6:00 erythrocy on in AM win source [#/volume data ] in Blood Platele MOD No No No No Nov 09 ts DECREAS informa informa informa informa 2016 [Presen E tion in tion in tion in tion in 6:00 AM ce] in source source source source Blood data data data data by Light microsc opy Poikilo 1+ No No No No Nov 09 cytosis informa informa informa informa 2016 tion in tion in tion in tion in 6:00 AM [Presen source source source source ce] in data data data data Blood by Light microsc opy Neutrophi 42 - 76 % High No Nov 09 ls informati 2016 6:00 [#/volume on in AM ] in source Blood by data Automated count Cells No #CELLS No No Nov 09 Counted informati informati informati 2016 6:00 Total [#] on in on in on in AM in Blood source source source data data data Basic metabolic panel in Blood Observa Value Referen Units Interpr Notes Date tion ce etation Range Urea 7 - 18 mg/dL Normal No Nov 09 nitrogen informati 2016 6:00 [Mass/vol on in AM ume] in source Serum or data Plasma Calcium 8.5 - mg/dL Low No Nov 09 [Mass/vol 10.1 informati 2016 6:00 ume] in on in AM Serum or source Plasma data Chloride 98 - 107 mmoL/L Normal No Nov 09 [Moles/vo informati 2016 6:00 lume] in on in AM Serum or source Plasma data Carbon 21.0 - mmoL/L Normal No Nov 09 dioxide, 32.0 informati 2016 6:00 total on in AM [Moles/vo source lume] in data Serum or Plasma Creatinin 0.70 - mg/dL Normal No Nov 09 e 1.30 informati 2016 6:00 [Mass/vol on in AM ume] in source Serum or data Plasma Creatinin 50 - 200 ML/MIN Normal No Nov 09 e renal informati 2016 6:00 clearance on in AM source predicted data by Cockcroft -Gault formula Estimated >60 ML/MIN No REFERENCE Nov 09 informati RANGE: 2017 6:00 glomerula on in >60 AM r source ML/MIN/1. filtratio data 73 SQUARE n rate METERSIf (GF this patient is -A merican, then multiply theresult by 1.210. Glucose 74 - 106 mg/dL Normal No Nov 09 [Mass/vol informati 2016 6:00 ume] in on in AM Serum or source Plasma data Potassium 3.5 - 5.1 mmoL/L Normal No Nov 09 informati 2016 6:00 [Moles/vo on in AM lume] in source Serum or data Plasma Sodium 136 - 145 mmoL/L Normal No Nov 09 [Moles/vo informati 2016 6:00 lume] in on in AM Serum or source Plasma data Basic metabolic panel in Blood Observa Value Referen Units Interpr Notes Date ti ce etation Range Urea 7 - 18 mg/dL Normal No Nov 07 nitrogen informati 2016 6:30 [Mass/vol on in AM ume] in source Serum or data Plasma Calcium 8.5 - mg/dL Low No Nov 07 [Mass/vol 10.1 informati 2016 6:30 ume] in on in AM Serum or source Plasma data Chloride 98 - 107 mmoL/L Normal No Nov 07 [Moles/vo informati 2016 6:30 lume] in on in AM Serum or source Plasma data Carbon 21.0 - mmoL/L Normal No Nov 07 dioxide, 32.0 informati 2016 6:30 total on in AM [Moles/vo source lume] in data Serum or Plasma Creatinin 0.70 - mg/dL Low No Nov 07 e 1.30 informati 2016 6:30 [Mass/vol on in AM ume] in source Serum or data Plasma Creatinin 50 - 200 ML/MIN No No Nov 07 e renal informati informati 2016 6:30 clearance on in on in AM source source predicted data data by Cockcroft -Gault formula Estimated >60 ML/MIN No REFERENCE Nov 07 informati RANGE: 2017 6:30 glomerula on in >60 AM r source ML/MIN/1. filtratio data 73 SQUARE n rate METERSIf (GF this patient is -A merican, then multiply theresult by 1.210. Glucose 74 - 106 mg/dL Normal No Nov 07 [Mass/vol informati 2016 6:30 ume] in on in AM Serum or source Plasma data Potassium 3.5 - 5.1 mmoL/L Normal SLIGHT Nov 07 HEMOLYSIS 2017 6:30 [Moles/vo NOTICED. AM lume] in K MAY BE Serum or FALSELY Plasma INCREASED .LAB.STJ Sodium 136 - 145 mmoL/L Normal No Nov 07 [Moles/vo informati 2016 6:30 lume] in on in AM Serum or source Plasma data CBC W Auto Differential panel in Blood Observa Value Referen Units Interpr Notes Date tion ce etation Range Basophils 0 - 0.2 K/MM3 Normal No Nov 07 informati 2016 6:30 [#/volume on in AM ] in source Blood by data Automated count Basophils 0.1 - 2.0 % Normal No Nov 07 / informati 2016 6:30 leukocyte on in AM s in source Blood by data Automated count Eosinophi 0.0 - 0.4 K/mm3 Normal No Nov 07 ls informati 2016 6:30 [#/volume on in AM ] in source Blood by data Automated count Eosinophi 0.1 - % Normal No Nov 07 ls/100 12.0 informati 2016 6:30 leukocyte on in AM s in source Blood by data Automated count Granulocy 1.3 - 8.0 K/mm3 Normal No Nov 07 win informati 2017 6:30 [#/volume on in AM ] in source Blood by data Automated count Granulocy 37.0 - % Normal No Nov 07 win/100 80.0 informati 2017 6:30 leukocyte on in AM s in source Blood by data Automated count Hematocri 42.0 - % Low No Nov 07 t [Volume 52.0 informati 2017 6:30 on in AM Fraction] source of Blood data Hemoglobi 14.1 - g/dL Low No Nov 07 n 18.0 informati 2017 6:30 [Mass/vol on in AM ume] in source Blood data Lymphocyt 0.7 - 4.5 K/mm3 Low No Nov 07 es informati 2017 6:30 [#/volume on in AM ] in source Unspecifi data ed specimen by Automated count Lymphocyt 10 - 50 % Normal No Nov 07 es informati 2016 6:30 [#/volume on in AM ] in source Unspecifi data ed specimen by Automated count Erythrocy 27 - 31.2 pg Normal No Nov 07 te mean informati 2017 6:30 corpuscul on in AM ar source hemoglobi data n [Entitic mass] Erythrocy 31.8 - g/dl Normal No Nov 07 te mean 35.4 informati 2017 6:30 corpuscul on in AM ar source hemoglobi data n concentra tion [Mass/vol ume] by Automated count Erythrocy 82.2 - fl Normal No Nov 07 te mean 97.8 informati 2017 6:30 corpuscul on in AM ar volume source [Entitic data volume] by Automated count Monocytes 0.1 - 1.0 K/mm3 Normal No Nov 07 informati 2017 6:30 [#/volume on in AM ] in source Blood by data Automated count Monocytes 1.7 - 9.3 % Normal No Nov 07 / informati 2017 6:30 leukocyte on in AM s in source Blood by data Automated count Platelet 7.4 - fl High No Nov 07 mean 10.4 informati 2017 6:30 volume on in AM [Entitic source volume] data in Blood by Automated count Platelets 142 - 424 K/mm3 Low No Nov 07 informati 2017 6:30 [#/volume on in AM ] in source Blood data Erythrocy 4.6 - 6.2 M/mm3 Low No Nov 07 win informati 2017 6:30 [#/volume on in AM ] in source Amniotic data fluid Erythrocy 11.5 - % Normal No Nov 07 te 17.5 informati 2017 6:30 distribut on in AM ion width source [Entitic data volume] by Automated count Leukocyte 4.8 - K/MM3 Low No Nov 07 s 10.8 informati 2017 6:30 [#/volume on in AM ] in source Blood data Cardiac enzymes Observa Value Referen Units Interpr Notes Date ti ce etation Range COMMENTS TO HATCH BOSS: CHEST PAIN Creatine 0 - 4.0 U/L Normal No Nov 06 kinase.MB informati 2016 5:05 /Creatine on in PM source kinase.to data breana [Ratio] in Serum or Plasma Creatine 0.0 - 3.6 ng/mL High No Nov 06 kinase.MB informati 2016 5:05 on in PM [Mass/vol source ume] in data Serum or Plasma Creatine 39 - 308 U/L High No Nov 06 kinase informati 2017 5:05 [Enzymati on in PM c source activity/ data volume] in Serum or Plasma Troponin 0.00 - ng/mL High 0.04 - Nov 06 I.cardiac 0.06 0.49 IS 2017 5:05 AN PM [Mass/vol INDETERMI ume] in NANT Serum or ZONEAnd Plasma can be consisten t with the following diseases: Trauma Criticall y ill patients Edmondson >30% TBSACHF Hypothyro idism Amyloidos isHyperte nsion Myocardit is SepsisHyp otension Rhabdomyo lysis Vital exhaust.P ostop surgery Pulmonary embolism CVARenal failure Acute neurologi pan disease Atrial fib. Lactate [Moles/volume] in Blood Observa Value Referen Units Interpr Notes Date ti etation Range Lactate 0.4 - 2.0 mmol/L Normal No Nov 06 [Moles/vo inform2016 lume] in on in 10:30 AM Blood source data CBC W Auto Differential panel in Blood Observa Value Referen Units Interpr Notes Date ti ce etation Range Basophils 0 - 0.2 K/MM3 Normal No Nov 06 informati 2016 8:25 [#/volume on in AM ] in source Blood by data Automated count Basophils 0.1 - 2.0 % Normal No Nov 06 /100 informati 2016 8:25 leukocyte on in AM s in source Blood by data Automated count Eosinophi 0.0 - 0.4 K/mm3 Normal No Nov 06 ls informati 2016 8:25 [#/volume on in AM ] in source Blood by data Automated count Eosinophi 0.1 - % Normal No Nov 06 ls/100 12.0 informati 2016 8:25 leukocyte on in AM s in source Blood by data Automated count Granulocy 1.3 - 8.0 K/mm3 Normal No Nov 06 win informati 2016 8:25 [#/volume on in AM ] in source Blood by data Automated count Granulocy 37.0 - % Normal No Nov 06 win/100 80.0 informati 2016 8:25 leukocyte on in AM s in source Blood by data Automated count Hematocri 42.0 - % Normal No Nov 06 t [Volume 52.0 informati 2016 8:25 on in AM Fraction] source of Blood data Hemoglobi 14.1 - g/dL Normal No Nov 06 n 18.0 informati 2016 8:25 [Mass/vol on in AM ume] in source Blood data Lymphocyt 0.7 - 4.5 K/mm3 Low No Nov 06 es informati 2016 8:25 [#/volume on in AM ] in source Unspecifi data ed specimen by Automated count Lymphocyt 10 - 50 % Normal No Nov 06 es informati 2016 8:25 [#/volume on in AM ] in source Unspecifi data ed specimen by Automated count Erythrocy 27 - 31.2 pg Normal No Nov 06 te mean informati 2016 8:25 corpuscul on in AM ar source hemoglobi data n [Entitic mass] Erythrocy 31.8 - g/dl Normal No Nov 06 te mean 35.4 informati 2016 8:25 corpuscul on in AM ar source hemoglobi data n concentra tion [Mass/vol ume] by Automated count Erythrocy 82.2 - fl Normal No Nov 06 te mean 97.8 informati 2016 8:25 corpuscul on in AM ar volume source [Entitic data volume] by Automated count Monocytes 0.1 - 1.0 K/mm3 Normal No Nov 06 informati 2016 8:25 [#/volume on in AM ] in source Blood by data Automated count Monocytes 1.7 - 9.3 % Normal No Nov 06 /100 informati 2016 8:25 leukocyte on in AM s in source Blood by data Automated count Platelet 7.4 - fl High No Nov 06 mean 10.4 informati 2016 8:25 volume on in AM [Entitic source volume] data in Blood by Automated count Platelets 142 - 424 K/mm3 Low No Nov 06 informati 2016 8:25 [#/volume on in AM ] in source Blood data Erythrocy 4.6 - 6.2 M/mm3 Normal No Nov 06 win informati 2016 8:25 [#/volume on in AM ] in source Amniotic data fluid Erythrocy 11.5 - % Normal No Nov 06 te 17.5 informati 2016 8:25 distribut on in AM ion width source [Entitic data volume] by Automated count Leukocyte 4.8 - K/MM3 Low No Nov 06 s 10.8 informati 2016 8:25 [#/volume on in AM ] in source Blood data Differential panel, method unspecified - Observa Value Referen Units Interpr Notes Date ti ce etation Range LYMPH 13 10 - 50 % Normal No Nov 062016 tion in 8:25 AM source data Monocytes 2 - 9 % Normal No Nov 06 /100 ati 2016 8:25 leukocyte on in AM s in source Blood by data Automated count Platele MARKED No No No No Nov 06 ts DECREAS informa informa informa informa 2016 [Presen E tion in tion in tion in tion in 8:25 AM ce] in source source source source Blood data data data data by Light microsc opy Neutrophi 42 - 76 % High No Nov 06 ls ati 2016 8:25 [#/volume on in AM ] in source Blood by data Automated count Cells No #CELLS No No Nov 06 Counted informati informati informati 2016 8:25 Total [#] on in on in on in AM in Blood source source source data data data Basic metabolic panel in Blood Observa Value Referen Units Interpr Notes Date tion ce etation Range Urea 7 - 18 mg/dL No No Nov 06 nitrogen informati informati 2016 8:25 [Mass/vol on in on in AM ume] in source source Serum or data data Plasma Calcium 8.5 - mg/dL Low No Nov 06 [Mass/vol 10.1 informati 2016 8:25 ume] in on in AM Serum or source Plasma data Chloride 98 - 107 mmoL/L Normal No Nov 06 [Moles/vo informati 2016 8:25 lume] in on in AM Serum or source Plasma data Carbon 21.0 - mmoL/L Normal No Nov 06 dioxide, 32.0 informati 2016 8:25 total on in AM [Moles/vo source lume] in data Serum or Plasma Creatinin 0.70 - mg/dL Normal No Nov 06 e 1.30 informati 2016 8:25 [Mass/vol on in AM ume] in source Serum or data Plasma Creatinin 50 - 200 ML/MIN Normal No Nov 06 e renal informati 2016 8:25 clearance on in AM source predicted data by Cockcroft -Gault formula Estimated >60 ML/MIN No REFERENCE Nov 06 informati RANGE: 2017 8:25 glomerula on in >60 AM r source ML/MIN/1. filtratio data 73 SQUARE n rate METERSIf (GF this patient is -A merican, then multiply theresult by 1.210. Glucose 74 - 106 mg/dL High No Nov 06 [Mass/vol informati 2016 8:25 ume] in on in AM Serum or source Plasma data Potassium 3.5 - 5.1 mmoL/L Low No Nov 06 informati 2016 8:25 [Moles/vo on in AM lume] in source Serum or data Plasma Sodium 136 - 145 mmoL/L Normal No Nov 06 [Moles/vo informati 2016 8:25 lume] in on in AM Serum or source Plasma data Comprehensive metabolic 2000 panel in Serum or Plasma Observa Value Referen Units Interpr Notes Date tion ce etation Range Albumin/G 1.1 - 1.8 No Low No Nov 05 lobulin informati informati 2016 6:05 [Mass on in on in AM ratio] in source source Serum or data data Plasma Albumin 3.4 - 5.0 gm/dL Low No Nov 05 [Mass/vol informati 2016 6:05 ume] in on in AM Serum or source Plasma data Alkaline 46 - 116 U/L Normal No Nov 05 phosphata informati 2016 6:05 se on in AM [Enzymati source c data activity/ volume] in Serum or Plasma Bilirubin 0.2 - 1.0 mg/dL Normal No Nov 05 .total informati 2016 6:05 [Mass/vol on in AM ume] in source Serum or data Plasma Urea 7 - 18 mg/dL No No Nov 05 nitrogen informati informati 2017 6:05 [Mass/vol on in on in AM ume] in source source Serum or data data Plasma Calcium 8.5 - mg/dL Low No Nov 05 [Mass/vol 10.1 informati 2016 6:05 ume] in on in AM Serum or source Plasma data Chloride 98 - 107 mmoL/L Normal No Nov 05 [Moles/vo informati 2016 6:05 lume] in on in AM Serum or source Plasma data Carbon 21.0 - mmoL/L Normal No Nov 05 dioxide, 32.0 informati 2017 6:05 total on in AM [Moles/vo source lume] in data Serum or Plasma Creatinin 0.70 - mg/dL Normal No Nov 05 e 1.30 informati 2017 6:05 [Mass/vol on in AM ume] in source Serum or data Plasma Creatinin 50 - 200 ML/MIN Normal No Nov 05 e renal informati 2017 6:05 clearance on in AM source predicted data by Cockcroft -Gault formula Estimated >60 ML/MIN No REFERENCE Nov 05 informati RANGE: 2017 6:05 glomerula on in >60 AM r source ML/MIN/1. filtratio data 73 SQUARE n rate METERSIf (GF this patient is -A merican, then multiply theresult by 1.210. Globulin 1.3 - 3.2 gm/dL Normal No Nov 05 [Mass/vol informati 2016 6:05 ume] in on in AM Serum source data Glucose 74 - 106 mg/dL Normal No Nov 05 [Mass/vol informati 2016 6:05 ume] in on in AM Serum or source Plasma data Potassium 3.5 - 5.1 mmoL/L Normal No Nov 05 informati 2016 6:05 [Moles/vo on in AM lume] in source Serum or data Plasma Sodium 136 - 145 mmoL/L Normal No Nov 05 [Moles/vo informati 2016 6:05 lume] in on in AM Serum or source Plasma data Aspartate 15 - 37 U/L High No Nov 05 informati 2016 6:05 aminotran on in AM sferase source [Enzymati data c activity/ volume] in Serum or Plasma Alanine 12 - 78 U/L Normal No Nov 05 aminotran informati 2016 6:05 sferase on in AM [Enzymati source c data activity/ volume] in Serum or Plasma Protein 6.4 - 8.2 gm/dL Low No Nov 05 [Mass/vol informati 2016 6:05 ume] in on in AM Serum or source Plasma data CBC W Auto Differential panel in Blood Observa Value Referen Units Interpr Notes Date tion ce etation Range Basophils 0 - 0.2 K/MM3 Normal No Nov 05 informati 2016 6:05 [#/volume on in AM ] in source Blood by data Automated count Basophils 0.1 - 2.0 % Normal No Nov 05 /100 informati 2017 6:05 leukocyte on in AM s in source Blood by data Automated count Eosinophi 0.0 - 0.4 K/mm3 Normal No Nov 05 ls informati 2016 6:05 [#/volume on in AM ] in source Blood by data Automated count Eosinophi 0.1 - % Normal No Nov 05 ls/100 12.0 informati 2017 6:05 leukocyte on in AM s in source Blood by data Automated count Granulocy 1.3 - 8.0 K/mm3 Normal No Nov 05 win informati 2016 6:05 [#/volume on in AM ] in source Blood by data Automated count Granulocy 37.0 - % High No Nov 05 win/100 80.0 informati 2016 6:05 leukocyte on in AM s in source Blood by data Automated count Hematocri 42.0 - % Normal No Nov 05 t [Volume 52.0 informati 2016 6:05 on in AM Fraction] source of Blood data Hemoglobi 14.1 - g/dL Normal No Nov 05 n 18.0 informati 2016 6:05 [Mass/vol on in AM ume] in source Blood data Lymphocyt 0.7 - 4.5 K/mm3 Low No Nov 05 es informati 2016 6:05 [#/volume on in AM ] in source Unspecifi data ed specimen by Automated count Lymphocyt 10 - 50 % Normal No Nov 05 es informati 2016 6:05 [#/volume on in AM ] in source Unspecifi data ed specimen by Automated count Erythrocy 27 - 31.2 pg Normal No Nov 05 te mean informati 2016 6:05 corpuscul on in AM ar source hemoglobi data n [Entitic mass] Erythrocy 31.8 - g/dl Normal No Nov 05 te mean 35.4 informati 2016 6:05 corpuscul on in AM ar source hemoglobi data n concentra tion [Mass/vol ume] by Automated count Erythrocy 82.2 - fl Normal No Nov 05 te mean 97.8 informati 2017 6:05 corpuscul on in AM ar volume source [Entitic data volume] by Automated count Monocytes 0.1 - 1.0 K/mm3 Normal No Nov 05 informati 2016 6:05 [#/volume on in AM ] in source Blood by data Automated count Monocytes 1.7 - 9.3 % Normal No Nov 05 /100 informati 2017 6:05 leukocyte on in AM s in source Blood by data Automated count Platelet 7.4 - fl High No Nov 05 mean 10.4 informati 2017 6:05 volume on in AM [Entitic source volume] data in Blood by Automated count Platelets 142 - 424 K/mm3 Low No Nov 05 informati 2016 6:05 [#/volume on in AM ] in source Blood data Erythrocy 4.6 - 6.2 M/mm3 Normal No Nov 05 win informati 2016 6:05 [#/volume on in AM ] in source Amniotic data fluid Erythrocy 11.5 - % Normal No Nov 05 te 17.5 informati 2016 6:05 distribut on in AM ion width source [Entitic data volume] by Automated count Leukocyte 4.8 - K/MM3 Low No Nov 05 s 10.8 informati 2016 6:05 [#/volume on in AM ] in source Blood data Cardiac enzymes Observa Value Referen Units Interpr Notes Date tion ce etation Range COMMENTS TO HATCH BOSS: please do on blood drawn this AM Creatine 0 - 4.0 U/L Normal No Nov 05 kinase.MB informati 2017 6:00 /Creatine on in AM source kinase.to data breana [Ratio] in Serum or Plasma Creatine 0.0 - 3.6 ng/mL No Nov 05 kinase.MB informati informati 2017 6:00 on in on in AM [Mass/vol source source ume] in data data Serum or Plasma Creatine 39 - 308 U/L High No Nov 05 kinase informati 2017 6:00 [Enzymati on in AM c source activity/ data volume] in Serum or Plasma Troponin 0.00 - ng/mL High 0.04 - Nov 05 I.cardiac 0.06 0.49 IS 2017 6:00 AN AM [Mass/vol INDETERMI ume] in NANT Serum or ZONEAnd Plasma can be consisten t with the following diseases: Trauma Criticall y ill patients Edmondson >30% TBSACHF Hypothyro idism Amyloidos isHyperte nsion Myocardit is SepsisHyp otension Rhabdomyo lysis Vital exhaust.P ostop surgery Pulmonary embolism CVARenal failure Acute neurologi pan disease Atrial fib. Cardiac enzymes Observa Value Referen Units Interpr Notes Date tion ce etation Range Creatine 0 - 4.0 U/L Normal No Nov 04 kinase.MB informati 2016 5:10 /Creatine on in PM source kinase.to data breana [Ratio] in Serum or Plasma Creatine 0.0 - 3.6 ng/mL High No Nov 04 kinase.MB informati 2016 5:10 on in PM [Mass/vol source ume] in data Serum or Plasma Creatine 39 - 308 U/L High No Nov 04 kinase informati 2017 5:10 [Enzymati on in PM c source activity/ data volume] in Serum or Plasma Troponin 0.00 - ng/mL High 0.04 - Nov 04 I.cardiac 0.06 0.49 IS 2016 5:10 AN PM [Mass/vol INDETERMI ume] in NANT Serum or ZONEAnd Plasma can be consisten t with the following diseases: Trauma Criticall y ill patients [place]son >30% TBSACHF Hypothyro idism Amyloidos isHyperte nsion Myocardit is SepsisHyp otension Rhabdomyo lysis Vital exhaust.P ostop surgery Pulmonary embolism CVARenal failure Acute neurologi pan disease Atrial fib. Mycoplasma pneumoniae IgM Ab [Presence] in Serum by Immunoassay Observa Value Referen Units Interpr Notes Date ti ce etation Range Mycopla NON-VENKATESH NONREAC No No No Nov 04 sma CTIVE TIVE informa informa informa 2017 pneumon tion in tion in tion in 11:20 iae IgM source source source AM Ab data data data [Presen ce] in Serum by Immunoa ssay Comprehensive metabolic 2000 panel in Serum or Plasma Observa Value Referen Units Interpr Notes Date tion ce etation Range Albumin/G 1.1 - 1.8 No Low No Nov 04 lobulin informati informati 2016 9:00 [Mass on in on in AM ratio] in source source Serum or data data Plasma Albumin 3.4 - 5.0 gm/dL Low No Nov 04 [Mass/vol informati 2016 9:00 ume] in on in AM Serum or source Plasma data Alkaline 46 - 116 U/L Normal No Nov 04 phosphata informati 2016 9:00 se on in AM [Enzymati source c data activity/ volume] in Serum or Plasma Bilirubin 0.2 - 1.0 mg/dL Normal No Nov 04 .total informati 2016 9:00 [Mass/vol on in AM ume] in source Serum or data Plasma Urea 7 - 18 mg/dL High No Nov 04 nitrogen informati 2017 9:00 [Mass/vol on in AM ume] in source Serum or data Plasma Calcium 8.5 - mg/dL Low No Nov 04 [Mass/vol 10.1 informati 2016 9:00 ume] in on in AM Serum or source Plasma data Chloride 98 - 107 mmoL/L Normal No Nov 04 [Moles/vo informati 2017 9:00 lume] in on in AM Serum or source Plasma data Carbon 21.0 - mmoL/L Normal No Nov 04 dioxide, 32.0 informati 2017 9:00 total on in AM [Moles/vo source lume] in data Serum or Plasma Creatinin 0.70 - mg/dL No No Nov 04 e 1.30 informati informati 2017 9:00 [Mass/vol on in on in AM ume] in source source Serum or data data Plasma Creatinin 50 - 200 ML/MIN No No Nov 04 e renal informati informati 2017 9:00 clearance on in on in AM source source predicted data data by Cockcroft -Gault formula Estimated >60 ML/MIN No REFERENCE Nov 04 informati RANGE: 2017 9:00 glomerula on in >60 AM r source ML/MIN/1. filtratio data 73 SQUARE n rate METERSIf (GF this patient is -A merican, then multiply theresult by 1.210. Globulin 1.3 - 3.2 gm/dL Normal No Nov 04 [Mass/vol informati 2017 9:00 ume] in on in AM Serum source data Glucose 74 - 106 mg/dL High No Nov 04 [Mass/vol informati 2016 9:00 ume] in on in AM Serum or source Plasma data Potassium 3.5 - 5.1 mmoL/L Low No Nov 04 informati 2016 9:00 [Moles/vo on in AM lume] in source Serum or data Plasma Sodium 136 - 145 mmoL/L Low No Nov 04 [Moles/vo informati 2017 9:00 lume] in on in AM Serum or source Plasma data Aspartate 15 - 37 U/L High No Nov 04 informati 2017 9:00 aminotran on in AM sferase source [Enzymati data c activity/ volume] in Serum or Plasma Alanine 12 - 78 U/L Normal No Nov 04 aminotran informati 2017 9:00 sferase on in AM [Enzymati source c data activity/ volume] in Serum or Plasma Protein 6.4 - 8.2 gm/dL Low No Nov 04 [Mass/vol informati 2016 9:00 ume] in on in AM Serum or source Plasma data Comprehensive metabolic [...] mmoL/L Low No Nov 03 [Moles/vo informati 2017 3:05 lume] in on in PM Serum or source Plasma data Carbon 21.0 - mmoL/L Normal No Nov 03 dioxide, 32.0 informati 2017 3:05 total on in PM [Moles/vo source [...] Referen Units Interpr Notes ce etation Range Amylase 25 - 115 U/L Normal No Nov 03 [Enzymati informati 2016 3:05 c on in PM activity/ source volume] data in Serum or Plasma Lipase [Enzymatic activity/volume] in Serum or Plasma Observa Value Referen Units Interpr Notes etation Range Lipase 73 - 393 U/L Normal No Nov 03 [Enzymati informati 2016 3:05 c on in PM activity/ source volume] data in Serum or Plasma Amylase [Enzymatic activity/volume] in Serum or Plasma Observa Value Referen Units Interpr Notes etation Range Amylase 25 - 115 U/L [...] Blood Observa Value Referen Units Interpr Notes ti ce etation Range Granulocy 1.3 - 8.0 K/mm3 Normal No Nov 03 win informati 2016 3:05 [#/volume on in PM ] in source Blood by data Automated count Granulocy 37.0 - % High No Nov 03 win/100 80.0 informati 2017 3:05 leukocyte on in PM s in source Blood by data Automated count Hematocri 42.0 - % Normal No Nov 03 t [Volume 52.0 informati 2016 3:05 on in PM Fraction] source of [...]
--- OUTSIDE RECORDS SUMMARY | 2017-01-22 21:13 | External Medical Summary Rpt ---
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
== END 2017-01-12 11:26 | disposition home or self-care (01) ==
LOC: ER 10:42
DX: M54.41 Lumbago with sciatica, right side (principal); Z88.6 Allergy status to analgesic agent; I25.10 Atherosclerotic heart disease of native coronary artery without angina pectoris; E78.5 Hyperlipidemia, unspecified; R56.9 Unspecified convulsions; I48.2 Chronic atrial fibrillation

== ENCOUNTER 2017-03-12 10:44 | Emergency (ER) | payer MEDICARE ==
[~2017-03-12] VITALS: Ht 181.6 cm; Wt 95.3 kg
[~2017-03-12 10:44] MED LIST changes: +CETIRIZINE HCL10 MG PO; +DICLOFENAC 50MG50 MG PO; +HYDROCODONE-APA1 TA1 PO; +RANITIDINE HCL150 MG PO
--- OUTSIDE RECORDS SUMMARY | 2017-03-12 10:48 | External Medical Summary Rpt | CCD ---
Author Author , [employer] Address Unknown Phone [email or web address] Immunization Name Date Rout CVX Reac Dose Comm Prov Is Faci e tion ent ider Refu lity Give sed n Infl 09- Intr 135 0.5 Hist D049 No D049 uenz 8-20 amus mL oric 01 01 a, 17 cula al High r Info rmat Dose ion - Sour ce Unsp ecif ied Tdap 07- Intr 115 0.5 Hist D049 No D049 , 8-20 amus mL oric 01 01 Adso 17 cula al rbed r Info rmat ion - Sour ce Unsp ecif ied
--- OUTSIDE RECORDS SUMMARY | 2017-03-12 10:48 | External Medical Summary Rpt | CCD ---
Author Author , [employer] Address Unknown Phone [email or web address] Purpose Continuity of Care Document - 11-03-2016 [...] Differential panel, method unspecified - (11-09-2016 06:00) Yonatan 3+ complet cells 017 ed [Presen 06:00 [...]
--- OUTSIDE RECORDS SUMMARY | 2017-03-12 10:48 | External Medical Summary Rpt | CCD ---
Author Author , [employer] Address Unknown Phone [email or web address] Purpose Continuity of Care Document - 11-03-2016 [...]
--- OUTSIDE RECORDS SUMMARY | 2017-03-12 10:48 | External Medical Summary Rpt | CCD ---
Author Author , [employer] Address Unknown Phone [email or web address] Immunization Name Date Rout CVX Reac Dose [...]
--- OUTSIDE RECORDS SUMMARY | 2017-03-12 10:50 | External Medical Summary Rpt ---
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
--- OUTSIDE RECORDS SUMMARY | 2017-03-12 10:50 | External Medical Summary Rpt ---
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
--- NOTE | 2017-03-12 11:37 | Urgent Treatment Center Report ---
History of Present Issue Date/Time Seen by Provider 03/12/17 1136 Visit Reason Pt arrived:Walked Presenting Problem:C/O COUGH/CONGESTION X1 WEEK Location if Accident: Onset of symptoms date/time:/ or onset unknown for:MEDICAL HX UNKNOWN Have you (or family members/close friends) recently traveled outside the [place]? N If Yes, where/when: Have you had exposure to infectious disease within the past month? TB? Other? Specify: c/o cough. Reports "head cold" that started one week ago. Runny nose, sore throat, drainage. That has improved and since yesterday, nonprod cough. [place] feverish yesterday. Other than gargling listerine, hasn't taken or tried anything else. In the past, robitussin has helped well with cough. Hx PNA. Admitted in October. No symptoms since resolved. Appt w/ PCP, Dr. Jackson, in the morning but isn't sure he could wait until then due to cough. Source patient Exam Limitations no limitations ALLERGIES Coded Allergies: codeine (UNKNOWN 12/23/16) Home Medications Active Scripts DICLOFENAC SODIUM (Diclofenac 50MG) 50 MG PO BID #60 TAB Prov: 01/12/17 HYDROCODONE 5MG/APAP 325MG (Hydrocodon-Acetaminophen 5-325) 1 TAB PO Q4HP PRN pain #18 TAB Prov: 01/12/17 Reported Medications Rivaroxaban (Xarelto) 20 MG PO QHS CHOLECALCIFEROL (VITAMIN D3) (Vitamin D3) 5,000 IU PO DAILY MULTIVITAMIN (Multi-Vitamins) 1 TAB PO DAILY Furosemide (Lasix) 20 MG PO DAILY Acetaminophen (Tylenol) 650 MG PO Q8 Cyanocobalamin (Vitamin B-12) (Vitamin B12) 500 MCG PO DAILY ROPINIROLE HCL (Ropinirole 1MG) 2 MG PO QHS Carvedilol 3.125 MG PO BID CETIRIZINE HCL (Cetirizine 10MG) 10 MG PO DAILY Atorvastatin Calcium (Atorvastatin) 40 MG PO DAILY Ranitidine Hcl (Ranitidine 150MG) 150 MG PO BID History Medical History General CAD? Yes Angina: Yes MO: No Hypertension? No Hyperlipidemia? Yes CHF? No DVT? No PE? No COPD? No Asthma? No Anemia? No GERD? No Gastric ulcers? No GI Bleed? No Hernia? No Thyroid Problems? No Hypothyroidism? No CVA? No Seizures? Yes Diabetes? No Renal Insuffiency? No UTI? No Stones? No BPH? Yes GB Disease: No Nephritic Syndrome? No Asplenia? No Hepatitis? No Sickle Cell Disease? No Arthritis? No Migraines? No Cataracts? Yes Glaucoma? No MRSA? No HIV? No TB? No Anxiety? No Depression? No Cancer? 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 denies: ear pain, nose discharge, nose congestion, throat pain ( resolved now). Respiratory see HPI, shortness of breath ("If I walk too far"), denies wheezing Cardiovascular denies chest pain, denies palpitations Gastrointestinal denies no symptoms reported Musculoskeletal back pain ("when I cough it aches") Skin denies rash Psychiatric/Neurological denies headache Physical Exam Vital Signs Vital Signs Date Time Temp Pulse Resp B/P Pulse O2 O2 Flow FiO2 Ox Delivery Rate 03/12 1055 98.0 79 18 102/70 97 General Appearance normal appearance, no apparent distress Eye Exam - bilateral eye normal exam Ear, Nose, Throat normal ENT inspection (x/ gustavo hearing aides) Neck non-tender, supple Respiratory Status Yes: trachea midline, chest symmetrical, non tender chest, non productive cough (worse with deep breaths). No: respiratory distress, use of accessory muscles, pain on inspiration, pain on expiration, productive cough. Lung Sounds anterior: lungs clear. posterior: lungs clear. bilateral: lungs clear. Cardiovascular regular rate/rhythm, no peripheral edema, no murmur Back normal inspection, nontender Neurologic alert, oriented x 3 Skin normal color, warm/dry Lymphatic no adenopathy Medical Decision Making LABS/Meds/Orders Pt receiving controlled substance in ED? No Results/Orders Laboratory Tests 03/12/17 1200: WBC 6.8, RBC 4.85, Hgb 14.8, Hct 45.0, MCV 92.7, RDW 14.0, Plt Count 129 L, MPV 10.3, Gran % 81.2 H, Gran # 5.5, Lymphocytes % 9.9 L, Monocytes % 6.0, Eosinophils % 2.7, Basophils % 0.2, Lymphocytes # 0.7, Monocytes # 0.4, Eosinophils # 0.2, Basophils # 0.0, PUBS MCHC 33.0, MCH 30.6 Orders Procedure Date/time Status CBC WITH AUTO DIFF 03/12 1148 Complete XRAY/CT/US XRAY/CT/US XRAY chest XR interpretation by reviewed by me (w/ JOE Rae MD), discussed w/ radiologist (read report) Xray Results no acure findings, previous pneumonia resolved, LLL atelectasis present on previous xray Departure Departure Time of Disposition 1224 Disposition DC Home or Self Care(routine) Clinical Impression Primary Impression: Cough Condition STABLE Referrals Migue Jackson MD (Family) Keep follow up appointment for tomorrow. Let him know you were here, CXR without acute findings, WBC normal but platelets low. Return to [facility] this evening or tonight for new or worsening symptoms. Patient Instructions DI for Cough -- Adult Additional Instructions * No sign of bacterial infection. Likely viral. Virus can take 7-14 days to run their course * Monitor Temp. Be sure to follow up if fever develops. Feeling feverish and a fever are not the same thing. * Encourage fluids, water, gatorade, powerade, pedialyte if /toddler/child * warm salt water gargles * warm fluids * sore throat lozenges * sleep elevated * humidifier/vaporizer * If you prefer robitussin for cough, pick it up over the counter. Be sure to keep your appointment for tomorrow. Discharge Counseling Counseled pt/family regarding diagnosis, test results, medications/RX, home care, follow up needs Comments offered prescriptions for cough, pt prefers robitussin at 1221
--- NOTE | 2017-03-12 11:52 | RADIOLOGY REPORT PS360 ---
CHEST(2 VIEWS-NOT PORTABLE) HISTORY: Cough, history of pneumonia cough ORDERING PHYSICIAN: HARRY EDGAR APRN PATIENT AGE: 77 years COMPARISON: 11/18/2016 FINDINGS: The cardiomediastinal silhouette and pulmonary vascularity are within normal limits. Persistent atelectatic or fibrotic changes are present in the left lower lobe. No lobar consolidation or collapse.. No acute bony abnormalities. IMPRESSION: No acute finding. Mild atelectasis or fibrosis in the left lung base
[2017-03-12 12:07] LABS: HEMOGLOBIN 14.8 g/dL (14.1-18.0); LYMPH # 0.7 K/mm3 (0.7-4.5); LYMPH % 9.9 % (10-50)
[2017-03-12 12:32] VITALS: BP 102/70
== END 2017-03-12 12:32 | disposition home or self-care (01) ==
LOC: UTC 10:44
PROVIDERS: Nurse Practitioner Family
DX: R05 Cough (principal); R68.89 Other general symptoms and signs